=== PATIENT | female | born 1965 | race Caucasian/White ===

== ENCOUNTER 2022-05-24 10:37 | Outpatient (CLI) | payer MEDICARE, BC, SELFPAY | END 2022-05-24 10:38 | disposition home or self-care (01) | PROVIDERS: PCP Family Medicine; Visit Provider Family Medicine | DX: M51.36 Other intervertebral disc degeneration, lumbar region (principal); M54.16 Radiculopathy, lumbar region; M48.062 Spinal stenosis, lumbar region with neurogenic claudication | CPT/HCPCS: 64483; J1100; Q9966 ==

== ENCOUNTER 2022-12-17 08:42 | Outpatient (CLI) | payer MEDICARE, BC, SELFPAY | END 2022-12-17 08:43 | disposition home or self-care (01) | LOC: INJ CL 08:44 | PROVIDERS: PCP Family Medicine; Visit Provider Family Medicine | DX: M54.16 Radiculopathy, lumbar region (principal); M51.36 Other intervertebral disc degeneration, lumbar region | CPT/HCPCS: 64483; J1100; Q9966 ==

== ENCOUNTER 2024-01-27 14:01 | Outpatient (CLI) | payer MEDICARE, BC, SELFPAY | END 2024-01-27 14:02 | disposition home or self-care (01) | LOC: INJ CL 14:02 | PROVIDERS: PCP Family Medicine; Visit Provider Family Medicine | DX: M17.11 Unilateral primary osteoarthritis, right knee (principal); M25.561 Pain in right knee | CPT/HCPCS: 64454 ==

== ENCOUNTER 2024-02-10 11:55 | Outpatient (CLI) | payer MEDICARE, BC, SELFPAY | END 2024-02-10 11:56 | disposition home or self-care (01) | LOC: INJ CL 11:55 | PROVIDERS: PCP Family Medicine; Visit Provider Family Medicine | DX: M17.11 Unilateral primary osteoarthritis, right knee (principal); M25.561 Pain in right knee | CPT/HCPCS: 64624; J2250; J3010 ==

== ENCOUNTER 2025-04-29 09:50 | Outpatient (CLI) | payer MEDICARE, BC, SELFPAY | END 2025-04-29 09:51 | disposition home or self-care (01) | PROVIDERS: PCP Family Medicine; Visit Provider Family Medicine | DX: M54.16 Radiculopathy, lumbar region (principal); M51.369 Other intervertebral disc degeneration, lumbar region without mention of lumbar back pain or lower extremity pain | CPT/HCPCS: 62323; J0702; Q9966 ==

== ENCOUNTER 2025-04-29 11:06 | Emergency (ER) | payer MEDICARE, BC, SELFPAY ==
--- OUTSIDE RECORDS SUMMARY | 2024-12-22 10:34 | XMS_ITS | Continuity of Care Document ---
Author Organization [facility] Address [address] [place] [address] Phone Care Team Providers Care Drop Clipper Name Role Phone Diane ROCHE, Elizabeth Unavailable Unavail able Allergies, Adverse Reactions, Alerts Substance Reaction Status Criticality No Known Allergies Active No Inform ation Medications Medication Instructions Dosage Effective Dates (start - stop) Status Comments ibuprofen 800 mg tablet take 1 tablet by oral route 3 times every day with food 800 MG - Active Procedures Procedure Date No Show Visit Fee Est Pt Eval 25 Min Telehealth Est Pt Eval 25 Min Arthrodesis, posterior, lumbar Posterior instrumentation, non-segmental Posterior instrumentation, non-segmental Arthrodesis, posterior, lumbar 21 Change Control for Diagnosis(s) 021 Anesthesia, extensive spine/cord procedu res No Show Visit Fee Inject, Spine, Lumb/sacr, Epi/subarc w/ img Guid Inject, Spine, Lumb/sacr, Epi/subarc w/ img Guid Methylprednisolone Acetate-40 Change Control for [employer] New Pt Eval 45 Min PT Eval - Low Complexity Therapeutic Exercise Advance Directives Directive Yes / No Effective Date File Name Resuscitation Not Answered N/A N/A Life Support Not Answered N/A N/A Intubation Not Answered N/A N/A Antibiotics Not Answered N/A N/A IV Fluid Support Not Answered N/A N/A Tube Feed Not Answered N/A N/A Other Directive N/A N/A WARNING:The information contained in this section is historical and is provided for information only and does not constitute a legal document or any assurance that the information is still accurate. Please verify the information with the bartholomew of the legal document before using it for clinical purposes. Encounters Encounter Description Practice Location Reason(s) For Visit Diagnoses Date Provider Providers Copied on Encounter RAINER Diego, [address], [place], [place], [address], [place] tel:[phone] Marcelle Diego [facility] 7390 No Information 5 Diane Johnson. [address], [place], [address], [place]. tel:[phone] Referring Provider: Hunter Contreras MD, [address] [place], [address]. tel:[phone] [facility], [address], [place], [place], [address], [place] tel:[phone] [facility] No Information Jun- 1 Juan Treadwell. [address], [place], [address], [place]. tel:[phone] Referring Provider: Hunter Contreras MD, [address] [place], [address]. tel:[phone] Est Pt Eval 25 Min Telehealth [facility], [address], [place], [place], [address], [place] tel:[phone] [facility] back pain (chief complaint) Intervertebral disc disorders w radiculopathy, lumbar regionLow back painRadiculopathy, lumbar regionDisruption of wound, unspecified, initial encounter Sep- 1 Mae Parker. [address], [place], [address], [place]. tel:[phone] Referring Provider: Hunter Contreras MD, [address] [place], [address]. tel:[phone] Est Pt Eval 25 Min [facility], [facility], [address], [place], [place], [address], [place] tel:[phone] [facility] Back pain (chief complaint) Intervertebral disc disorders w radiculopathy, lumbar regionLow back painRadiculopathy, lumbar regionSpinal stenosis, site unspecifiedDisrupt ion of wound, unspecified, initial encounterBody mass index (BMI) 40.0-44.9, adult Sep- 1 Motyrese Elena. [address], [place], [address], [place]. tel:[phone] Referring Provider: Hunter Contreras MD, [address] [place], [address]. tel:[phone] [facility], [address], [place], [place], [address], [place] tel:[phone] [facility] No Information 1 Luis Manuel Kelley. [address], [place], [address], [place]. tel:[phone] Referring Provider: Warren Romano, [address], [place], [address]. tel:[phone] [facility], [address], [place], [address], [place] tel:[phone] [facility] back pain (chief complaint) Spondylolisthesis, lumbar regionIntervertebr al disc disorders w radiculopathy, lumbar regionOther intervertebral disc degeneration, lumbar region 1 [facility]. [address], [place], [place], [address], [place]. tel:[phone] Referring Provider: Warren Romano, [address], [place], [address]. tel:[phone] Johnathon, [facility], [address], [place], [place], [address], [place] tel:[phone] [facility] Surgical [facility] No Information 1 Peg Carroll. [address], [place], [address], [place]. tel:[phone] Referring Provider: Warren Romano, [address], [place], [address]. tel:[phone] [facility], [facility], [address], [place], [place], [address], [place] tel:[phone] [facility] Spinal stenosis, site unspecified 1 Martine Chamberlain. [address], [place], [place], [address], [place]. tel:[phone] [facility], [facility], [address], [place], [place], [address], [place] tel:[phone] [facility] No Information 1 Mae Parker. [address], [place], [address], [place]. tel:[phone] Referring Provider: Hunter Contreras MD, [address] [facility], [place], [address]. tel:[phone] Johnathon, [facility], [address], [place], [place], [address], [place] tel:[phone] [facility] No Information 1 Luis Manuel Kelley. [address], [place], [address], [place]. tel:[phone] Referring Provider: Warren Romano, [address], [place], [address]. tel:[phone] [facility], [address], [place], [address], [place] tel:[phone] [facility] back pain (chief complaint) Radiculopathy, lumbar regionRadiculopath y, lumbar region Adarsh- 1 [facility]. [address], [place], [place], [address], [place]. tel:[phone] Referring Provider: Warren Romano, [address], [place], [address]. tel:[phone] New Pt Eval 45 Min Johnathon, [facility], [address], [place], [place], [address], [place] tel:[phone] [facility] back pain (chief complaint) Low back painRadiculopathy, lumbar regionSpinal stenosis 1 Martine Florian. [address], [place], [place], [address], [place]. tel:[phone] Referring Provider: Hunter Contreras MD, [address] [place], [address]. tel:[phone] Johnathon, [facility], [address], [place], [place], [address], [place] tel:[phone] [facility] Radiculopathy, lumbar regionSpinal stenosis, site unspecified 1 Stefanie Skinner. [address], [facility] , [place], [address], [place]. tel:[phone] Referring Provider: Hunter Contreras MD, [address] [place], [address]. tel:[phone] Family History Family Member Type Diagnosis Age At Onset No Information Payers Payer name Insurance type Covered constitution party ID Authoriza tiyumiko(s) No Information Social History Type Description Quantity Date Captured Comments Alcohol Use Details Unknown Caffeine Use Details Unknown Tobacco Use Status No Information Smoking Status No Information Sex Female Chief Complaint And Reason For Visit No Information Reason For Referral Reason For Referral No Information Plan Of Treatment Date Type Action Status Goal Tobacco cessation counseling completed Goal Tobacco cessation counseling completed Referral Referred To: transforaminal LESI Ordered: transforaminal LESI on both sides L4-5 ordered Referral Ordered: Surgery (related to Disruption of wound, unspecified, initial encounter) ordered Referral Referred To: [address] [place] [address], [phone] Ordered: Referrals: Surgery. Evaluate and treat ordered Referral Ordered: Behavioral Health (related to Radiculopathy, lumbar region) ordered Referral Ordered: interspinous spacer ordered Referral Ordered: Referrals: Behavioral Health. Evaluate and treat ordered Referral Ordered: Behavioral Health (related to Spinal stenosis) ordered Referral Referred To: Physical Therapy Ordered: Physical Therapy ordered Referral Ordered: Referrals: Behavioral Health ordered Referral Referred To: transforaminal LESI Ordered: transforaminal LESI on the left L4-5 ordered History Of Present Illness Encounter Date Complaint History Of Prese nt Illness back pain Location of pain is lower back. Pain is radiated to the left thigh, right thigh and buttock.The patient describes the pain as shooting. Symptoms are aggravated by sitting and walking. Symptoms are relieved by lying down and pain meds/drugs. Back pain Location of pain is lower back. Pain is radiated to the left thigh and right thigh.The patient describes the pain as shooting. Symptoms are aggravated by sitting and standing. Symptoms are relieved by ice and pain meds/drugs. back pain Location of pain is lower back. back pain Location of pain is lower back.The patient describes the pain as burning. back pain Location of pain is lower back, gluteal area and legs.The patient describes the pain as deep, diffuse, stabbing, superficial and throbbing. Symptoms are aggravated by bending, changing positions, daily activities, pushing, rolling over in bed, sneezing, standing and twisting. Symptoms are relieved by injection: epidural injection, physical therapy, rest and sitting. Functional Status Date Functional Assessmen t No Information Instructions Date Instruction Additional Infor sherry - Continue Percocet 5mg up to 3x/day as needed, fill today- URGENT: Schedule transforaminal lumbar epidural steroid injection at L4-5- Order lumbar CT at [facility] - Follow up in one week IN CLINIC Related to Intervertebral disc disorders w radiculopathy, lumbar region Same plan of care as statement for above diagnosis, no changes Related to Low back pain Same plan of care as statement for above diagnosis, no changes Related to Radiculopathy, lumbar region Same plan of care as statement for above diagnosis, no changes Related to Disruption of wound, unspecified, initial encounter Same plan of care as statement for above diagnosis, no changes Related to Disruption of wound, unspecified, initial encounter - Prescribe Percocet 5mg up to 3x/day as needed for post op pain- Referral to Wound Clinic at [facility] in [place]. - Prescribed another 10 day course of cephalexin, take as prescribed - Follow up in 2-4 weeks Related to Intervertebral disc disorders w radiculopathy, lumbar region Same plan of care as statement for above diagnosis, no changes Related to Low back pain Same plan of care as statement for above diagnosis, no changes Related to Radiculopathy, lumbar region Same plan of care as statement for above diagnosis, no changes Related to Spinal stenosis, site unspecified Giving encouragement to exercise Related to Body mass index [BMI]40.0-44.9, adult Dietary needs education Related to Body mass index [BMI]40.0-44.9, adult -Schedule repeat Lum bar TFESI in 3-4 weeks digital coordinator to speak with patient before discharge.Follow up with [facility] Therapy Implant Evaluation.Follow up with [facility] Wellness Implant Evaluation.*Provide patient with MinuteMan information*Prior Auth MinuteMan at L4-5 for spinal stenosis Related to Radiculopathy, lumbar region Same plan of care as statement for above diagnosis, no changes Related to Spinal stenosis - records from [facility] (Dr. Pimentel)- records from [facility] (Dr. Sandhu) - Order MRI of the lumbar spine at [facility] - Order stationary neutral A/P and lateral views x rays at [facility].- Order lateral flexion vs extension x ray of the lumbar spine at [facility].- schedule left transforaminal lumbar epidural steroid injection at L4-[address] Issa to discuss possible spinal spacer procedure - refer to physical therapy - refer to behavioral health - no medications prescribed today - return in one month with advanced practice provider to disucss plan of care moving forward The risks and benefits of the procedure will be reviewed with the physician on the day of the procedure. Related to Low back pain Same plan of care as statement for above diagnosis, no changes Related to Radiculopathy, lumbar region Assessments Type Assessment Date No Information Patient Care Teams Name Effective Dates (start - stop) Status Members No Information
--- OUTSIDE RECORDS SUMMARY | 2024-12-22 10:34 | XMS_ITS | Continuity of Care Document ---
Author Organization Johnathon [facility] Address [address] [place] [address] Phone Care Team Providers Care Loader Helper Sorting Yard Name Role Phone Diane ROCHE, Elizabeth Unavailable [...] Providers Copied on Encounter RAINER Diego, [address], [place], [place], [address], [place] tel:[phone] Marcelle Diego [facility] 7390 No Information 5 Diane Johnson. [address], [place], [address], [place]. tel:[phone] Referring Provider: Hunter Contreras MD, [address] [place], [address]. tel:[phone] [facility], [address], [place], [place], [address], [place] tel:[phone] [facility] No Information Jun- 1 Juan Treadwell. [address], [place], [address], [place]. tel:[phone] Referring Provider: Hunter Contreras MD, [address] [place], [address]. tel:[phone] Est Pt Eval 25 Min Telehealth [facility], [address], [place], [place], [address], [place] tel:[phone] [facility] back pain (chief complaint) Intervertebral disc disorders w radiculopathy, lumbar regionLow back painRadiculopathy, lumbar regionDisruption of wound, unspecified, initial encounter Sep- 1 Mae Parker. [address], [place], [address], [place]. tel:[phone] Referring Provider: Hunter Contreras MD, [address] [place], [address]. tel:[phone] Est Pt Eval 25 Min [facility], [facility], [address], [place], [place], [address], [place] tel:[phone] [facility] Back pain (chief complaint) Intervertebral disc disorders w radiculopathy, lumbar regionLow back painRadiculopathy, lumbar regionSpinal stenosis, site unspecifiedDisrupt ion of wound, unspecified, initial encounterBody mass index (BMI) 40.0-44.9, adult Sep- 1 Motyrese Elena. [address], [place], [address], [place]. tel:[phone] Referring Provider: Hunter Contreras MD, [address] [place], [address]. tel:[phone] [facility], [address], [place], [place], [address], [place] tel:[phone] [facility] No Information 1 Luis Manuel Kelley. [address], [place], [address], [place]. tel:[phone] Referring Provider: Warren Romano, [address], [place], [address]. tel:[phone] [facility], [address], [place], [address], [place] tel:[phone] [facility] back pain (chief complaint) Spondylolisthesis, lumbar regionIntervertebr al disc disorders w radiculopathy, lumbar regionOther intervertebral disc degeneration, lumbar region 1 [facility]. [address], [place], [place], [address], [place]. tel:[phone] Referring Provider: Warren Romano, [address], [place], [address]. tel:[phone] Johnathon, [facility], [address], [place], [place], [address], [place] tel:[phone] [facility] No Information 1 Peg Carroll. [address], [place], [address], [place]. tel:[phone] Referring Provider: Warren Romano, [address], [place], [address]. tel:[phone] [facility], [facility], [address], [place], [place], [address], [place] tel:[phone] [facility] Spinal stenosis, site unspecified 1 Martine Chamberlain. [address], [place], [place], [address], [place]. tel:[phone] [facility], [facility], [address], [place], [place], [address], [place] tel:[phone] [facility] No Information 1 Mae Parker. [address], [place], [address], [place]. tel:[phone] Referring Provider: Hunter Contreras MD, [address] [facility], [place], [address]. tel:[phone] Johnathon, [facility], [address], [place], [place], [address], [place] tel:[phone] [facility] No Information 1 Luis Manuel Kelley. [address], [place], [address], [place]. tel:[phone] Referring Provider: Warren Romano, [address], [place], [address]. tel:[phone] [facility], [address], [place], [address], [place] tel:[phone] [facility] back pain (chief complaint) Radiculopathy, lumbar regionRadiculopath y, lumbar region Adarsh- 1 [facility]. [address], [place], [place], [address], [place]. tel:[phone] Referring Provider: Warren Romano, [address], [place], [address]. tel:[phone] New Pt Eval 45 Min Johnathon, [facility], [address], [place], [place], [address], [place] tel:[phone] [facility] back pain (chief complaint) Low back painRadiculopathy, lumbar regionSpinal stenosis 1 Martine Florian. [address], [place], [place], [address], [place]. tel:[phone] Referring Provider: Hunter Contreras MD, [address] [place], [address]. tel:[phone] Johnathon, [facility], [address], [place], [place], [address], [place] tel:[phone] [facility] Radiculopathy, lumbar regionSpinal stenosis, site unspecified 1 Stefanie Skinner. [address], [facility] , [place], [address], [place]. tel:[phone] Referring Provider: Hunter Contreras MD, [address] [place], [address]. tel:[phone] Family History Family Member Type Diagnosis Age At Onset No Information Payers Payer name Insurance type Covered alliance party ID Authoriza tiyumiko(s) No Information Social [...] unspecified, initial encounter) ordered Referral Referred To: [address] [place] [address], [phone] Ordered: Referrals: Surgery. Evaluate and treat ordered [...] No Information Instructions Date Instruction Additional Infor mation Same plan of care as statement for above diagnosis, no changes Related to Disruption of wound, unspecified, initial encounter Same plan of care as statement for above diagnosis, no changes Related to Radiculopathy, lumbar region Same plan of care as statement for above diagnosis, no changes Related to Low back pain - Continue Percocet 5mg up to 3x/day [...] changes Related to Spinal stenosis, site unspecified Same plan of care as statement for above diagnosis, no changes Related to Radiculopathy, lumbar region Sep- Same plan of care as statement for above diagnosis, no changes Related to Low back pain - Prescribe Percocet 5mg up to 3x/day as needed for post op pain- Referral to Wound Clinic at [facility] in [place]. - Prescribed another 10 day course of cephalexin, take as prescribed - Follow up in 2-4 weeks Related to Intervertebral disc disorders w radiculopathy, lumbar region Sep- Dietary needs education Related to Body mass index [BMI]40.0-44.9, adult Giving encouragement to exercise Related to Body mass index [BMI]40.0-44.9, adult -Schedule repeat Lum bar TFESI in 3-4 weeks acquisition marketing coordinator to speak with patient before discharge.Follow up with [facility] Physical Therapy Implant Evaluation.Follow up with [facility] Wellness Implant Evaluation.*Provide patient with MinuteMan information*Prior Auth MinuteMan at L4-5 for spinal stenosis Related to Radiculopathy, lumbar region Same plan of care as statement for above diagnosis, no changes Related to Spinal stenosis - records from [facility] (Dr. Pimentel)- records from [facility] (Dr. Sandhu) - Order MRI of the lumbar spine at [facility] - Order stationary neutral A/P and lateral views x rays at [facility].- Order lateral flexion vs extension x ray of the lumbar spine at [facility].- schedule left transforaminal lumbar epidural steroid injection [...]
--- OUTSIDE RECORDS SUMMARY | 2025-04-06 13:06 | XMS_ITS | Encounter Summary ---
Author Organization [facility] Address [address] [place] [address] Care Team Providers Care Homeowner Association Manager Name Role Phone Elsewhere, Pcp Primary Care Provider Unavailabl e Encounter Details Date Type Department Care Team (Latest Contact Info) Description 04/06/2025 1:06 PM CDT Hospital Encounter Department of Laboratory Medicine in [place], [place] [address] [place] [address] Sean Newton M.D. [address] [place] [address] Alcohol Moderate Or Severe Use Disorder (Dependence) Uncomplicated (HCC) Discharge Disposition: Home or Self Care Social History Tobacco Use Types Packs/Day Years Used Date Smoking Tobacco: Former Cigarettes Smokeless Tobacco: Never Alcohol Use Standard Drinks/Week Comments Not Currently 0 (1 standard drink = 0.6 oz pur e alcohol) [facility] Utilities Answer Date Recorded In the past 12 months has e [employer], gas, oil, or water [employer] threatened to shut off services in your home? No 11/24/2024 Hunger Vital Sign Answer Date Recorded Within the past 12 months, y ou worried that your food would run out before you got the money to buy more. Often true Within the past 12 months, t he food you bought just didn't last and you didn't have money to get more. Sometimes true PRAPARE - Transportation Answer Date Re corded In the past 12 months, has l ack of transportation kept you from medical appointments or from getting medications? No 11/06 In the past 12 months, has l ack of transportation kept you from meetings, work, or from getting things needed for daily living? No 11/24/2024 Housing Stability Answer Date Recorded What is your living situation today? I have a 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 4 albuterol 90 mcg/actuation inhaler Inhale 2 puffs every 4 (four) hours as needed for wheezing or shortness of breath. 6.7 g 4 HYDROmorphone (Dilaudid) 2 mg tabletIndications :Prolonged Acute Pain/Traumatic Injury Take 1 tablet (2 mg total) by mouth every 4 (four) hours as needed for pain for up to 10 doses Indication: Prolonged Acute Pain/Traumatic Injury. 10 tablet 4 ibuprofen 400 mg tablet Take 400 mg by mouth every 6 (six) hours as needed for pain. naltrexone microspheres (VIVITROL IM) Inject intramuscularly every 30 (thirty) days. rifAMPin (Rifadin) 300 mg capsule Take 300 mg by mouth 2 (two) times a day. sennosides (Senokot) 8.6 mg tablet Take 17.2 mg by mouth 2 (two) times a day as needed for constipation. 4 documented as of this encounter Plan of Treatment Not on file documented as of this encounter Procedures Procedure Name Priority Date/Time Associated Diagnosis Comments CSM ENHANCED PROFILE,21, HRMS/IA, U Routine 04/06/2025 1:09 PM CDT Alcohol Moderate Or Severe Use Disorder (Dependence) Uncomplicated (HCC) documented in this encounter Results * (ABNORMAL) CSM Enhanced Profile with Reflex, 21, hour MS/IA, Random, Urine (04/06/2025 1:09 PM T) List patient's current medications Not provided 9:01 PM T [facility] Comment: ----ADDITIONAL INFORMATION---- Accuracy and completeness of declared medications on reports solely dependent on information submitted by client. Creatinine, Random, U 141.0 mg/dL 5 8:26 AM T [facility] Specific [place] 1.021 04/07/20 2 5 8:26 AM CDT SDS pH 5.6 5 8:26 AM CDT [facility] Oxidants Negative Cutoff: 200 mg/L 8:26 AM CDT [facility] Comment Normal 8:26 AM CDT [facility] Barbiturates Negative Cutoff: 200 ng/mL 5 8:26 AM T [facility] Cocaine Negative Cutoff: 150 ng/mL 5 8:26 AM T [facility] Comment: This cocaine immunoassay targets benzoylecgonine the primary metabolite of cocaine. Tetrahydrocannabinol Negative Cutoff: 50 ng/mL 5 8:26 AM T [facility] Comment: This immunoassay targets delta-9 tetrahydrocannabinol carboxylic acid (THC-COOH), a metabolite of delta-9 tetrahydrocannabinol the main psychoactive ingredient of marijuana. ----ADDITIONAL INFORMATION---- This report is intended for use in clinical monitoring or management of patients. It is not intended for use in employment-related testing. Codeine Not Detected Cutoff: 25 ng/mL 5 10:11 AM CDT [facility] Comment:Tylenol 3 Mpzdtli-2-ozqp-glucuro nide Not Detected Cutoff: 100 ng/mL 5 10:11 AM CDT [facility] Comment:Metabolite of codein e Morphine Not Detected Cutoff: 25 ng/mL 5 10:11 AM CDT [facility] Comment: Rhiannon Retana, MS Contin; Also a minor metabolite (10%) of codeine and can be seen in low concentrations (<2,000 ng/mL) with poppy seed ingestion. Vfjweqix-4-ggwj-glucur onide Not Detected Cutoff: 100 ng/mL 5 10:11 AM T [facility] Comment:Metabolite of morphi ne 6-monoacetylmorphine Not Detected Cutoff: 25 ng/mL 10:11 AM T [facility] Comment:Metabolite of heroin Hydrocodone Not Detected Cutoff: 25 ng/mL 5 10:11 AM T [facility] Comment: Lortab, Zamora, Vicodin; Also a very minor metabolite of codeine and impurity (<1%) of oxycodone. Norhydrocodone Not Detected Cutoff: 25 ng/mL 5 10:11 AM T [facility] Comment:Metabolite of hydroc odone Dihydrocodeine Not Detected Cutoff: 25 ng/mL 10:11 AM T [facility] Comment:Metabolite of hydroc odone Hydromorphone Not Detected Cutoff: 25 ng/mL 10:11 AM T [facility] Comment: Dilaudid, Exalgo; Also a metabolite of hydrocodone and a minor (<5%) metabolite of morphine. Xvuaonlyqbrtf-3-hsqe-g lucuronide Not Detected Cutoff: 100 ng/mL 10:11 AM T [facility] Comment:Metabolite of hydrom orphone Oxycodone Not Detected Cutoff: 25 ng/mL 10:11 AM T [facility] Comment:Endocet, Percocet, O xycontin Noroxycodone Not Detected Cutoff: 25 ng/mL 10:11 AM T [facility] Comment:Metabolite of oxycod one Oxymorphone Not Detected Cutoff: 25 ng/mL 10:11 AM T [facility] Comment:Numorphan, Opana; Al so a metabolite of oxycodone. Uuadjucrele-5-iywj-glu curonide Not Detected Cutoff: 100 ng/mL 10:11 AM T [facility] Comment:Metabolite of oxymor phone and/or naloxone (nornaloxone) Noroxymorphone Present(A) Cutoff: 25 ng/mL 10:11 AM T [facility] Comment:Metabolite of oxymor phone and/or naloxone (nornaloxone) Fentanyl Not Detected Cutoff: 2 ng/mL 5 10:11 AM CDT [facility] Comment:Actiq, Duragesic, Fe ntora Norfentanyl Not Detected Cutoff: 2 ng/mL 5 10:11 AM CDT [facility] Comment:Metabolite of fentan yl Meperidine Not Detected Cutoff: 25 ng/mL 5 10:11 AM CDT [facility] Comment:Demerol Normeperidine Not Detected Cutoff: 25 ng/mL 5 10:11 AM CDT [facility] Comment:Metabolite of meperi dine Naloxone Not Detected Cutoff: 25 ng/mL 5 10:11 AM CDT [facility] Comment:Narcan Wwqlejxq-5-rogb-glucur onide Not Detected Cutoff: 100 ng/mL 5 10:11 AM CDT [facility] Comment:Metabolite of naloxo ne Methadone, U Not Detected Cutoff: 25 ng/mL 5 10:11 AM CDT [facility] Comment:Dolophine EDDP Not Detected Cutoff: 25 ng/mL 5 10:11 AM CDT [facility] Comment:Metabolite of methad one Propoxyphene Not Detected Cutoff: 25 ng/mL 5 10:11 AM CDT [facility] Comment:Darvon, Darvocet Norpropoxyphene Not Detected Cutoff: 25 ng/mL 5 10:11 AM CDT [facility] Comment:Metabolite of propox yphene Tramadol Not Detected Cutoff: 25 ng/mL 5 10:11 AM CDT [facility] Comment:Tradol, Ultram, Ultr acet O-desmethyltramadol Not Detected Cutoff: 25 ng/mL 5 10:11 AM CDT [facility] Comment:Metabolite of tramad ol Tapentadol Not Detected Cutoff: 25 ng/mL 5 10:11 AM CDT [facility] Comment:Nucynta N-desmethyltapentadol Not Detected Cutoff: 50 ng/mL 5 10:11 AM CDT [facility] Comment:Metabolite of tapent adol Tscjvglqth-opxi-ntbzil onide Not Detected Cutoff: 100 ng/mL 10:11 AM T [facility] Comment:Metabolite of tapent adol Buprenorphine Not Detected Cutoff: 5 ng/mL 10:11 AM T [facility] Comment:Buprenex, Suboxone Norbuprenorphine see below Cutoff: 5 ng/mL 10:11 AM T [facility] Comment: Unknown interfering substance present; unable to obtain results. Metabolite of buprenorphine Norbuprenorphine glucuronide Not Detected Cutoff: 20 ng/mL 10:11 AM T [facility] Comment:Metabolite of bupren orphine Opioid Interpretation Test detected the presence of noroxymorphone (metabolite of oxymorphone). Suspect use of oxymorphone within the past three days. Noroxymorphone can also be a metabolite of naloxone (nornaloxone). If present with naloxone and/or fentoras-6-guyg-g lucuronide, the results are consistent with use of naloxone (Narcan) within the past three days. The results can also be consistent with use of naltrexone (Vivitrol or Revia) within the past three days. 10:11 AM [facility] Comment: ----ADDITIONAL INFORMATION---- This test was developed and its performance characteristics determined by [facility] in a manner consistent with CLIA requirements. This test has not been cleared or approved by the U.S. Food and Drug Administration. Alprazolam Not Detected Cutoff: 10 ng/mL 10:22 AM [facility] Comment:Xanax Alpha-Hydroxyalprazola m Not Detected Cutoff: 10 ng/mL 10:22 AM T [facility] Comment:Metabolite of Alpraz olam Alpha-Hydroxyalprazola m Glucuronide Not Detected Cutoff: 50 ng/mL 10:22 AM T [facility] Comment:Metabolite of Alpraz olam Chlordiazepoxide Not Detected Cutoff: 10 ng/mL 10:22 AM T [facility] Comment:Librium Clobazam Not Detected Cutoff: 10 ng/mL 10:22 AM [facility] Comment:Frisium, Onfi N-Desmethylclobazam Not Detected Cutoff: 200 ng/mL 07/05/202 5 10:22 AM CDT [facility] Comment:Metabolite of Clobaz am Clonazepam Not Detected Cutoff: 10 ng/mL 5 10:22 AM CDT [facility] Comment:Klonopin, Rivotril 7-aminoclonazepam Not Detected Cutoff: 10 ng/mL 5 10:22 AM CDT [facility] Comment:Metabolite of Clonaz epam Diazepam Not Detected Cutoff: 10 ng/mL 5 10:22 AM CDT [facility] Comment:Valium Nordiazepam Not Detected Cutoff: 10 ng/mL 5 10:22 AM CDT [facility] Comment:Metabolite of Chlord iazepoxide, Diazepam, or Prazepam. Flunitrazepam Not Detected Cutoff: 10 ng/mL 5 10:22 AM T [facility] Comment:Rohypnol 7-aminoflunitrazepam Not Detected Cutoff: 10 ng/mL 5 10:22 AM T [facility] Comment:Metabolite of Flunit razepam Flurazepam Not Detected Cutoff: 10 ng/mL 5 10:22 AM T [facility] Comment:Dalmane 2-Hydroxy Ethyl Flurazepam Not Detected Cutoff: 10 ng/mL 5 10:22 AM T [facility] Comment:Metabolite of Fluraz epam Lorazepam Not Detected Cutoff: 10 ng/mL 5 10:22 AM T [facility] Comment:Ativan Lorazepam Glucuronide Not Detected Cutoff: 50 ng/mL 5 10:22 AM T [facility] Comment:Metabolite of Loraze kvng Midazolam Not Detected Cutoff: 10 ng/mL 5 10:22 AM T [facility] Comment:Versed Alpha-Hydroxy Midazolam Not Detected Cutoff: 10 ng/mL 5 10:22 AM T [facility] Comment:Metabolite of Midazo christian Oxazepam Not Detected Cutoff: 10 ng/mL 5 10:22 AM T [facility] Comment:Serax; Also a metabo lite of Chlordiazepoxide, Diazepam, or Temazepam. Oxazepam Glucuronide Not Detected Cutoff: 50 ng/mL 5 10:22 AM CDT [facility] Comment:Metabolite of Oxazep am Prazepam Not Detected Cutoff: 10 ng/mL 5 10:22 AM CDT [facility] Comment:Centrax Temazepam Not Detected Cutoff: 10 ng/mL 5 10:22 AM T [facility] Comment:Restoril; Also a met abolite of Diazepam. Temazepam Glucuronide Not Detected Cutoff: 50 ng/mL 10:22 AM CDT [facility] Comment:Metabolite of Temaze kvng Triazolam Not Detected Cutoff: 10 ng/mL 5 10:22 AM CDT [facility] Comment:Halcion Alpha-Hydroxy Triazolam Not Detected Cutoff: 10 ng/mL 5 10:22 AM CDT [facility] Comment:Metabolite of Triazo christian Zolpidem Not Detected Cutoff: 10 ng/mL 5 10:22 AM CDT [facility] Comment:Ambien Zolpidem Ozqdxj-4-Pfdmkumldn acid Not Detected Cutoff: 10 ng/mL 10:22 AM CDT [facility] Comment:Metabolite of Zolpid em Benzodiazepine Interpretation No benzodiazepines were detected. The absence of expected drug(s) and/or drug metabolite(s) may indicate non-compliance, altered pharmacokinetics, inappropriate timing of specimen collection relative to drug administration, diluted/adulterat ed urine, or limitations of testing. 10:22 AM T [facility] Comment: ----ADDITIONAL INFORMATION---- This test was developed and its performance characteristics determined by [facility] in a manner consistent with CLIA requirements. This test has not been cleared or approved by the U.S. Food and Drug Administration. Methamphetamine Not Detected Cutoff: 100 ng/mL 11:34 AM CDT [facility] Comment:Desoxyn Amphetamine Not Detected Cutoff: 100 ng/mL 11:34 AM T [facility] Comment: Dyanavel XR, Adzenys ER, Adderall, Vyvanse; Also a metabolite of methamphetamine 3,4-methylenedioxymeth amphetamine (MDMA) Not Detected Cutoff: 100 ng/mL 5 11:34 AM CDT [facility] 3,6-knepgbvfvvngeu-H-e thylamphetamine (MDEA) Not Detected Cutoff: 100 ng/mL 5 11:34 AM CDT [facility] 3,4-methylenedioxyamph etamine (MDA) Not Detected Cutoff: 100 ng/mL 5 11:34 AM CDT [facility] Comment:Also a metabolite of MDMA and/or MDEA Ephedrine Not Detected Cutoff: 100 ng/mL 5 11:34 AM CDT [facility] Pseudoephedrine Not Detected Cutoff: 100 ng/mL 5 11:34 AM CDT [facility] Comment:Sudafed Phentermine Not Detected Cutoff: 100 ng/mL 5 11:34 AM CDT [facility] Comment:Adipex-P, Lomaira, Q symia Phencyclidine (PCP) Not Detected Cutoff: 20 ng/mL 11:34 AM CDT [facility] Methylphenidate Not Detected Cutoff: 20 ng/mL 5 11:34 AM CDT [facility] Comment:Ritalin, Concerta Ritalinic acid Not Detected Cutoff: 100 ng/mL 11:34 AM CDT [facility] Comment:Metabolite of methyl phenidate Stimulant Interpretation No stimulants were detected. The absence of expected drug(s) and/or drug metabolite(s) may indicate non-compliance, altered pharmacokinetics, inappropriate timing of specimen collection relative to drug administration, diluted/adulterat ed urine, or limitations of testing. 11:34 AM CDT [facility] Comment: ----ADDITIONAL INFORMATION---- This test was developed and its performance characteristics determined by [facility] in a manner consistent with CLIA requirements. This test has not been cleared or approved by the U.S. Food and Drug Administration. Ethyl Glucuronide Scrn w/Reflex, U Negative Cutoff: 500 ng/mL 8:26 AM CDT [facility] Comment: ----ADDITIONAL INFORMATION---- This test was developed and its performance characteristics determined by [facility] in a manner consistent with CLIA requirements. This test has not been cleared or approved by the U.S. Food and Drug Administration. Urine (Urine, Midstream) 04/06/2025 1:09 PM CDT 04/06/2025 9:01 PM CDT us Sean Newton M.D. LAB URINE ORDERABLES Fin al Result [facility] [address] [place] [address] [facility] [address] [place] [address] [facility] [address] [place] [address] [place] [address] documented in this encounter Visit Diagnoses Diagnosis Alcohol Moderate Or Severe Use Disorder (Dependence) Uncomplicated (HCC) documented in this encounter Additional Health Concerns Assessment Noted Time PHQ-9 Depression Total Score: 10 06/17/ 019 8:00 PM CDT documented as of this encounter Care Teams Homeowner Association Manager Relationship Specialty Start Date End Date Elsewhere, Pcp PCP - General Internal Medicine 01/20/25 documented as of this encounter
--- OUTSIDE RECORDS SUMMARY | 2025-04-06 13:07 | XMS_ITS | Encounter Summary ---
Author Organization [facility] Address [address] [place] [address] Care Team Providers Care Packing House Laborer Name Role Phone Elsewhere, Pcp Primary Care Provider Unavailabl e Encounter Details Date Type Department Care Team (Latest Contact Info) Description 04/06/2025 1:07 PM CDT - 04/06/2025 11:59 PM CDT Hospital Encounter Department of Laboratory Medicine in [place], [place] [address] [place] [address] Sean Newton M.D. [address] [place] [address] Alcohol Moderate Or Severe Use Disorder (Dependence) Uncomplicated (HCC) Discharge Disposition: Home or Self Care Social History Tobacco Use Types Packs/Day Years Used Date Smoking Tobacco: Former Cigarettes Smokeless Tobacco: Never Alcohol Use Standard Drinks/Week Comments Not Currently 0 (1 standard drink = 0.6 oz pur e alcohol) [facility] Utilities Answer Date Recorded In the past 12 months has e electric, gas, oil, or water [employer] threatened to shut off services in your [...] living situation today? 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 Gender Identity Female 03/12/2022 1:24 PM CDT [...] as of this encounter Plan of Treatment Scheduled Orders Name Type Priority Associated Diagnoses Orde r Schedule CSM Enhanced Profile with Reflex, 21, hour MS/IA, Random, Urine Lab Routine Alcohol Moderate Or Severe Use Disorder (Dependence) Uncomplicated (HCC) Once for 1 Occurrences starting 04/06/2025 until 04/06/2025 documented as of this encounter Visit Diagnoses Diagnosis Alcohol Moderate Or Severe Use Disorder (Dependence) Uncomplicated (HCC) documented in this encounter Additional Health Concerns Assessment Noted Time PHQ-9 Depression Total Score: 10 06/17/ 019 8:00 PM CDT documented as of this encounter Care Teams Packing House Laborer Relationship Specialty Start Date End Date Elsewhere, Pcp PCP - General Internal Medicine 01/20/25 documented as of this encounter
--- OUTSIDE RECORDS SUMMARY | 2025-04-29 11:10 | XMS_ITS | Clinical Summary ---
Author Organization [facility] Address [address] [place] [address] Care Team Providers Care Wire Mill Rover Name Role Phone José Miguel Mckenzie MD Primary Care Provider [phone] Source Comments You are receiving this document as you are listed as the primary care provider,follow-up provider, or the patient has been referred to you for consultation.This is in compliance with the Medicare and[facility] Health[facility] EHR Incentive Program,which states Providers who transition their patient to another setting of careor provider of care or refers their patient to another provider of care shouldprovide summary care record for each transition of care or referral. [facility] Allergies No known active allergies Medications BuPROPion HCl (WELLBUTRIN OR) Acti ve SERTRALINE HCL OR Ac tive IBUPROFEN OR Active Social History Tobacco Use Types Packs/Day Years Used Date Smoking Tobacco: Every Day Cigarettes Alcohol Use Standard Drinks/Week Comments Yes 0 (1 standard drink = 0.6 oz pur e alcohol) Comments Unknown Sex and Gender Information Value Date Recorded Sex Assigned at Not on file Legal Sex Female 3:58 AM CDT Gender Identity Not on file Sexual Orientation Not on file Last Filed Vital Signs Vital Sign Reading Time Taken Comments Blood Pressure 150/75 04/13/2020 9:55 AM CDT Pulse 81 04/13/2020 9:55 AM CDT Temperature 36.7 C (98 F) 04/13/2020 9:55 AM CDT Respiratory Rate 18 04/13/2020 9:55 AM CDT Oxygen Saturation 94% 04/13/2020 9:55 AM CDT Inhaled Oxygen Concentration - - Weight - - Height - - Body Mass Index - - Plan of Treatment Health Maintenance Due Date Last Done Comments Cervical Cancer Screening Due 1963 Colon Cancer Screening Plan Due 1963 Hep C Screening (Preventive Services) 1965 Medicare Annual Wellness Visit 1963 Mammogram 1963 HIV Screening (Preventive Services) 1979 DTaP/Tdap/Td Vaccine (1 - Tdap) 1982 Cholesterol 2008 Pneumococcal Vaccine 50+ Yrs (1 of 1 - PCV) 2013 Zoster/Shingles Vaccine (1 of 2) 2013 COVID-19 Vaccine (1 - 2023-2 5 season) 2024 Influenza Vaccine (#1) 2025 RSV Vaccine (1 - 1-dose 75+ series) 2038 HepA Vaccine Aged Out No longer eligi ble based on patient's age to complete this topic HepB Vaccine Aged Out No longer eligi ble based on patient's age to complete this topic Hib Vaccine Aged Out No longer eligi ble based on patient's age to complete this topic IPV (Polio) Vaccine Aged Out No longe r eligible based on patient's age to complete this topic MCV4 Vaccine Aged Out No longer eligi ble based on patient's age to complete this topic Meningococcal B Vaccine Aged Out No l onger eligible based on patient's age to complete this topic Insurance MEDICARE MANAGED CARE [facility] Care Teams Wire Mill Rover Relationship Specialty Start Date End Date José Miguel Mckenzie MD [address] [place] [address] PCP - General 07/24/1996
--- OUTSIDE RECORDS SUMMARY | 2025-04-29 11:10 | XMS_ITS | Encounter Summary ---
Author Organization [facility] Address [address] [place] [address] Care Team Providers Care Right Of Way Man Name Role Phone José Miguel Mckenzie MD Primary Care Provider [phone] Encounter Details Date Type Department Care Team (Latest Contact Info) Description 07/18/1998 Orders Only José Miguel Mckenzie MD [address] [place] [address] Social History Tobacco Use Types Packs/Day Years Used Date Smoking Tobacco: Never Assessed Comments Unknown Sex and Gender Information Value Date Recorded Sex Assigned at Not on file Legal Sex Female 3:58 AM CDT Gender Identity Not on file Sexual Orientation Not on file documented as of this encounter Plan of Treatment Not on file documented as of this encounter Visit Diagnoses Not on filedocumented in this encounter Additional Health Concerns Infection Onset Date Last Indicated Resolved Time R/O COVID19 04/13/2020 04/13/2020 04/13/2020 8:56 PM CDT documented as of this encounter Care Teams Right Of Way Man Relationship Specialty Start Date End Date José Miguel Mckenzie MD [address] [place] [address] PCP - General 07/24/1996 documented as of this encounter
--- OUTSIDE RECORDS SUMMARY | 2025-04-29 11:10 | XMS_ITS | Encounter Summary ---
Author Organization [facility] Address [address] [place] [address] Care Team Providers Care Assistant Press Operator Name Role Phone José Miguel Mckenzie MD Primary Care Provider [phone] Encounter Details Date Type Department Care Team (Latest Contact Info) Description 06/27/1998 Orders Only José Miguel Mckenzie MD [address] [place] [address] Social History Tobacco Use Types Packs/Day Years [...] documented as of this encounter Care Teams Assistant Press Operator Relationship Specialty Start Date End Date José Miguel Mckenzie MD [address] [place] [address] PCP - General 07/24/1996 documented as of this encounter
--- OUTSIDE RECORDS SUMMARY | 2025-04-29 11:11 | XMS_ITS | Clinical Summary ---
Author Organization [facility] Address [address] [place] [address] Care Team Providers Care Director Advanced Name Role Phone Elsewhere, Pcp Primary Care Provider Unavailabl e Source Comments Patient records contain information from all sites at [facility]. For routine questions regarding patient records, call [phone] during business hours, M-F 8:00 AM - 5:00 PM Central Time. Record requests for emergency care only can be directed to [phone] at any time.[facility] Allergies Active Allergy Reactions Criticality Noted Date Comments Pollen Extracts Other (see comments) 08/27/2024 Congestion Medications * This document contains information received from the source organization and may not represent a complete record from that organization. sennosides (Senokot) 8.6 mg tablet Take 17.2 mg by mouth 2 (two) times a day as needed for constipation. 07/29/20 24 Active acetaminophen (TylenoL) 325 mg tablet Take 2 tablets (650 mg total) by mouth 3 (three) times a day. 08/13/20 24 Active ibuprofen 400 mg tablet Take 400 mg by mouth every 6 (six) hours as needed for pain. Active rifAMPin (Rifadin) 300 mg capsule Take 300 mg by mouth 2 (two) times a day. Active amLODIPine (Norvasc) 5 mg tablet Take 1 tablet (5 mg total) by mouth daily. 30 tablet 08/30/20 24 Active Additional Information Patient taking differently: 10 mgoral Daily, Reported on 11/04/2024 lisinopriL 40 mg tablet Take 1 tablet (40 mg total) by mouth daily. 30 tablet 08/30/20 Active FLUoxetine (PROzac) 20 mg capsule Take 3 capsules (60 mg total) by mouth daily. 90 capsule 08/30/20 Active melatonin 3 mg tablet Take 2 tablets (6 mg total) by mouth at bedtime. 60 tablet 08/30/20 Active omeprazole (PriLOSEC) [address] capsule Take 1 capsule (20 mg total) by mouth 2 (two) times a day before morning and evening meals. 60 capsule 08/30/20 Active methocarbamoL (Robaxin) 500 mg tablet Take 1 tablet (500 mg total) by mouth 3 (three) times a day as needed for muscle spasms for up to 10 days. 30 tablet 08/30/20 Active albuterol 90 mcg/actuation inhaler Inhale 2 puffs every 4 (four) hours as needed for wheezing or shortness of breath. 6.7 g 08/30/20 Active HYDROmorphone (Dilaudid) 2 mg tabletIndication s:Prolonged Acute Pain/Traumatic Injury Take 1 tablet (2 mg total) by mouth every 4 (four) hours as needed for pain for up to 10 doses Indication: Prolonged Acute Pain/Traumatic Injury. 10 tablet 08/30/20 Active Additional Information Patient not taking.Reported on 11/04/[address] tablet Take 1 tablet (325 mg total) by mouth 2 (two) times a day. 60 tablet 08/30/20 Active naltrexone microspheres (VIVITROL IM) Inject intramuscularly every 30 (thirty) days. Active pregabalin (Lyrica) 150 mg capsule Take 1 capsule (150 mg total) by mouth 3 (three) times a day. 90 capsule 01/07/20 Active Active Problems Problem Noted Date Diagnosed Date Insomnia 08/01/2024 Overview (08/01/2024): Currently on trazodone but we will be discontinued. Melatonin 6 mg p.o. at bedtime started. Assessment & Plan (08/30/2024 4:07 PM [employer]): She is sleeping well with the melatonin. Assessment & Plan (08/01/2024 8:43 AM CDT): Nursing/patient is requesting we discontinue as needed trazodone and start melatonin since her trazodone is as needed. Trazodone 100 mg p.o. bedtime discontinued and melatonin 6 mg p.o. at bedtime started. Halfway Stay Certification Exam 07/30/2024 Overview (07/30/2024): Short-term stay Assessment & Plan (07/30/2024 11:05 AM CDT): Patient remains appropriate SNF resident. Order summary paperwork signed following our visit, this included review of medications and orders. Current comorbidities, ADL need/level of debility requires skilled care/therapy. Medications and labs all reviewed and appropriate related to comorbidities, unless otherwise indicated. Physician order sheet signed. Continue PT/OT therapy, nutrition intervention, skin protection, and fall prevention. Polypharmacy 07/30/2024 Overview (07/30/2024): All medications reviewed at least bimonthly for adverse events, interactions, and continued indication/appropriateness. Reduction as able. Advanced Care Planning 07/30/2024 Overview (07/30/2024): Full code Assessment & Plan (07/30/2024 11:07 AM CDT): Patient will like to continue full code status while at the shelter. Infection And Inflammatory R eaction Due To Other Internal Joint Prosthesis Initial 07/20/2024 Overview (08/30/2024): Right total knee arthroplasty 06/01/2024 Irrigation and debridement of arthroplasty 07/20/[address] [facility] for duration of IV antibiotic therapy clarified through 08/30. Assessment & Plan (08/30/2024 4:12 PM [employer]OR): She is discharging tomorrow and is on oral antibiotics. PICC line will be pulled tomorrow. 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 She will follow up with ID at [facility]. She will have an occasional dilaudid for pain. Assessment & Plan (08/13/2024 3:50 PM [employer]OR): IV cefazolin to continue through 08/30/2024. Stop date of p.o. rifampin still unclear and will be clarified by nursing. Following with Infectious Disease. Pain is controlled with hydromorphone and acetaminophen. Orders to follow-up with orthopedics in 2 weeks at which time sutures can be removed. Assessment & Plan (08/01/2024 8:44 AM CDT): Patient/nursing has no concerns the right knee management. Pain is well controlled with current regimen per patient. She is currently on cephalexin IV till 08/30/2024. Infectious disease following. Presence Of Right Artificial Knee Joint 06/02/20 24 Overview (08/30/2024): Knee is still slightly red and warm to touch. Assessment & Plan (08/30/2024 4:09 PM [employer]): Continue rifampin and follow up with ID at [facility] as planned. Gastro-Esophageal Reflux Dis ease With Esophagitis Without Bleeding 08/05/2023 Overview (08/01/2024): Managed with omeprazole. Assessment & Plan (08/30/2024 4:05 PM [employer]): Follow up with PCP for monitoring serum magnesium levels. Asymptomatic. Assessment & Plan (08/01/2024 8:31 AM CDT): Asymptomatic. Continue care plan. Deficiency Vitamin D 07/30/2018 Overview (07/30/2024): Jul 2018: still low at 24. Hypertension Essential Primary 05/19/2017 Overview (08/01/2024): Treatment: Lisinopril and amlodipine Goal: 110-130. Assessment & Plan (08/30/2024 3:47 PM [employer]): Normotensive on current regimen. Assessment & Plan (08/01/2024 8:33 AM CDT): Blood pressure normotensive. Continue care plan. Chronic Obstructive Pulmonary Disease 07/26/2015 Overview (08/01/2024): Manage with albuterol sulfate Assessment & Plan (08/30/2024 3:49 PM [employer]): Lungs clear Assessment & Plan (08/01/2024 8:29 AM CDT): Stable. Continue pulmonary hygiene. Depression Major Recurrent Moderate 11/07/2014 Overview (08/01/2024): Managed with fluoxetine. Assessment & Plan (08/30/2024 4:04 PM [employer]): Continue medication Assessment & Plan (08/01/2024 8:30 AM CDT): Patient was in high spirit and denied depression. We will continue care plan. Alcohol Moderate Or Severe U se Disorder (Dependence) Uncomplicated 11/07/2014 Overview (08/01/2024): Multiple history of alcohol intoxication. She has had therapy in the past. Goes to AA. Assessment & Plan (08/30/2024 3:49 PM [employer]ST [employer]OR): She has abstained from ETOH Assessment & Plan (08/01/2024 8:28 AM CDT): Denied alcohol withdrawal symptoms and verbalized no urge/craving for alcohol. We will continue to monitor. Morbid Severe Obesity Due To Excess Calories Overview (07/30/2024): Body mass index is 45.14 kg/m . Assessment & Plan (08/30/2024 4:07 PM [employer]ST [employer]OR): This is clinically significant due to increased nursing cares, use of resources and specialty equipment. Chronic Pain Syndrome Overview (08/13/2024): Chronic low back pain. Encounters * This document contains information received from the source organization and may not represent a complete record from that organization. Date Type Department Care Team Description 04/06/2025 1:07 PM CDT - 04/06/2025 11:59 PM CDT Hospital Encounter Department of Laboratory Medicine in [address] [phone] Sean Newton M.D. Alcohol Moderate Or Severe Use Disorder (Dependence) Uncomplicated (HCC) Discharge Disposition: Home or Self Care 04/06/2025 1:06 PM CDT Hospital Encounter Department of Laboratory Medicine in [address] [id number] Sean Newton M.D. Alcohol Moderate Or Severe Use Disorder (Dependence) Uncomplicated (HCC) Discharge Disposition: Home or Self Care 03/09/2025 1:02 PM CDT - 03/09/2025 11:59 PM CDT Hospital Encounter Department of Laboratory Medicine in [address] [phone] Sean Newton M.D. Alcohol Moderate Or Severe Use Disorder (Dependence) Uncomplicated (HCC) Discharge Disposition: Home or Self Care 02/15/2025 12:50 PM CDT - 02/15/2025 11:59 PM CDT Hospital Encounter Department of Laboratory Medicine in [address] [phone] Sean Newton M.D. Alcohol Moderate Or Severe Use Disorder (Dependence) Uncomplicated (HCC) Discharge Disposition: Home or Self Care from Last 3 Months Immunizations Immunization Administration Dates Next Due HepB Adult 03/15/2015,09/27/2014,07/06/2014 Influenza, Injectable, Mdck, Preservative Free, Quadrivalent 08/11/2019 Influenza, Unspecified 07/23/2013 PCV20 06/24/2022 PPSV23 12/30/2018,07/07/2013 RZV (SHINGRIX) 11/06/2021 Td Preservative Free (TENIVA C, DECAVAC) 11/14/2017 Tdap 10/29/2007 influenza trivalent vaccine (6 months and older)(PF) 08/26/2005 influenza vaccine quad (FLUZONE/FLUARIX) (6 months and older)(PF) 08/12/2024,06/17/2023,06/24/2022,2021,07/04/2020,07/06/2018,07/21/2017,0 06/13/2016,06/06/2015,09/27/2014 Social History Tobacco Use Types Packs/Day Years Used Date Smoking Tobacco: Former Cigarettes Smokeless Tobacco: Never Tobacco Cessation:Ready to Q uit: Not Asked; Counseling Given: Not Answered Alcohol Use Standard Drinks/Week Comments Not Currently 0 (1 standard drink = 0.6 oz pur e alcohol) [facility] Utilities Answer Date Recorded In the past 12 months has th e electric, gas, oil, or water company threatened to shut off services in your [...] your living situation today? I have a [facility] place to live 11/24/2024 Comments No Sex and Gender Information Value Date Recorded Sex Assigned at Female 03/12/2022 1:24 PM CDT Legal Sex Female 8:33 PM [employer] Gender Identity Female 03/12/2022 1:24 PM CDT Sexual Orientation Straight 07/30/2022 9: 10 AM CDT Last Filed Vital Signs Vital Sign Reading Time Taken Comments Blood Pressure 129/88 08/30/2024 8:35 AM [employer] Pulse 77 08/30/2024 8:35 AM [employer] Temperature 36.7 C (98 F) 08/30/2024 8:35 AM [employer] Respiratory Rate 18 08/30/2024 8:35 AM [employer] Oxygen Saturation 93% 08/30/2024 8:35 AM [employer] Inhaled Oxygen Concentration - - Weight 116 kg (254 lb 12.8 oz) 08/30/2024 8:35 A M [employer] Height 162.6 cm (5' 4) 07/29/2024 5:47 PM CDT Body Mass Index 43.74 07/29/2024 5:47 PM CDT Plan of Treatment Health Maintenance Due Date Last Done Comments CT Colonography 1963 Cologuard 1965 Depression Monitoring (PHQ-9) 1965 FIT 1965 Hepatitis C Screening 1965 Lipid (Cholesterol) Screening 1965 Zoster Vaccines (2 of 2) 01/01/2022 11/06/2021 RSV vaccine - (32-36 weeks) or 60+ years (1 - Risk 60-74 years 1-dose series) 2023 COVID-19 Vaccine ( season) 2024 10/08/2023, 04/25/2022, 11/06/2021, Additional history exists Depression Monitoring (PHQ-9 for quality tracking) 10/06/2024 Influenza Vaccine (#1) 2025 , 06/17/2023, 06/24/2022, Additional history exists Office Visit for Blood Pressure Check / Re-check 08/30/2025 08/30/2024 Mammogram 10/29/2025 10/29/2024, 10/07, 05/15/2023, Additional history exists DTaP,Tdap,and Td Vaccines (3 - Td or Tdap) 11/14/2027 11/14/2017, 10/29/2007 Cervical/Vaginal Cancer Screening 11/18/2027 11/18/2024, 06/04/2018 Fasting Glucose for Diabetes Screening 11/25/2027 11/25/2024, 09/07/2024, 08/30/2024, Additional history exists Colonoscopy 09/03/2033 09/03/2023 Colorectal Cancer Screening 09/03/2033 Hepatitis B Vaccines Completed 03/15/2015, 09/27/2014, 07/06/2014 Hepatitis B Screening Discontinued 05/27/2019 Pneumococcal vaccine (50+ years) Completed 06/24/2022, 12/30/2018, 07/07/2013 IPV Vaccines Aged Out No longer eligi ble based on patient's age to complete this topic Procedures Procedure Name Priority Date/Time Associated Diagnosis Comments CSM ENHANCED PROFILE,21, HRMS/IA, U Routine 04/06/2025 1:09 PM CDT Alcohol Moderate Or Severe Use Disorder (Dependence) Uncomplicated (HCC) CSM ENHANCED PROFILE,21, HRMS/IA, U Routine 03/09/2025 8:58 PM CDT Alcohol Moderate Or Severe Use Disorder (Dependence) Uncomplicated (HCC) CSM ENHANCED PROFILE,21, HRMS/IA, U Routine 02/15/2025 12:52 PM CDT Alcohol Moderate Or Severe Use Disorder (Dependence) Uncomplicated (HCC) from Last 3 Months Results * (ABNORMAL) CSM Enhanced Profile with Reflex, 21, hour MS/IA, Random, Urine (04/06/2025 1:09 PM CDT) Only the most recent of3 resultswithin the time period is included. List patient's current medications Not provided 9:01 PM CDT [facility] Comment: ----ADDITIONAL INFORMATION---- Accuracy and completeness of declared medications on reports solely dependent on information submitted by client. Creatinine, Random, U 141.0 mg/dL 5 8:26 AM CDT [facility] Specific Bruno 1.021 04/07/20 2 5 8:26 AM CDT [facility] pH 5.6 5 8:26 AM CDT [facility] Oxidants Negative Cutoff: 200 mg/L 5 8:26 AM CDT [facility] Comment Normal 5 8:26 AM CDT [facility] Barbiturates Negative Cutoff: 200 ng/mL 5 8:26 AM CDT [facility] Cocaine Negative Cutoff: 150 ng/mL 5 8:26 AM CDT [facility] Comment: This cocaine immunoassay targets benzoylecgonine the primary metabolite of cocaine. Tetrahydrocannabinol Negative Cutoff: 50 ng/mL 8:26 AM T [facility] Comment: This immunoassay targets delta-9 tetrahydrocannabinol carboxylic acid (THC-COOH), a metabolite of delta-9 tetrahydrocannabinol the main psychoactive ingredient of marijuana. ----ADDITIONAL INFORMATION---- This report is intended for use in clinical monitoring or management of patients. It is not intended for use in employment-related testing. Codeine Not Detected Cutoff: 25 ng/mL 5 10:11 AM CDT [facility] Comment:Tylenol 3 Aemetxs-9-hmvy-glucuro nide Not Detected Cutoff: 100 ng/mL 5 10:11 AM [facility] Comment:Metabolite of codein e Morphine Not Detected Cutoff: 25 ng/mL 10:11 AM T [facility] Comment: Rhiannon Retana, MS Contin; Also a minor metabolite (10%) of codeine and can be seen in low concentrations (<2,000 ng/mL) with poppy seed ingestion. Isabanqz-6-hvgm-glucur onide Not Detected Cutoff: 100 ng/mL 10:11 AM T [facility] Comment:Metabolite of morphi ne 6-monoacetylmorphine Not Detected Cutoff: 25 ng/mL 5 10:11 AM T [facility] Comment:Metabolite of heroin Hydrocodone Not Detected Cutoff: 25 ng/mL 10:11 AM [facility] Comment: Lortab, [place], Vicodin; Also a very minor metabolite of codeine and impurity (<1%) of oxycodone. Norhydrocodone Not Detected Cutoff: 25 ng/mL 5 10:11 AM T [facility] Comment:Metabolite of hydroc odone Dihydrocodeine Not Detected Cutoff: 25 ng/mL 10:11 AM T [facility] Comment:Metabolite of hydroc odone Hydromorphone Not Detected Cutoff: 25 ng/mL 5 10:11 AM T [facility] Comment: Dilaudid, Exalgo; Also a metabolite of hydrocodone and a minor (<5%) metabolite of morphine. Mxxjpaspolwew-9-znue-g lucuronide Not Detected Cutoff: 100 ng/mL 5 10:11 AM CDT [facility] Comment:Metabolite of hydrom orphone Oxycodone Not Detected Cutoff: 25 ng/mL 5 10:11 AM CDT [facility] Comment:Endocet, Percocet, O xycontin Noroxycodone Not Detected Cutoff: 25 ng/mL 5 10:11 AM CDT [facility] Comment:Metabolite of oxycod one Oxymorphone Not Detected Cutoff: 25 ng/mL 5 10:11 AM CDT [facility] Comment:Numorphan, Opana; Al so a metabolite of oxycodone. Vvlglxjaqit-1-dbot-glu curonide Not Detected Cutoff: 100 ng/mL 10:11 AM CDT [facility] Comment:Metabolite of oxymor phone and/or naloxone (nornaloxone) Noroxymorphone Present(A) Cutoff: 25 ng/mL 5 10:11 AM CDT [facility] Comment:Metabolite of oxymor phone and/or naloxone (nornaloxone) Fentanyl Not Detected Cutoff: 2 ng/mL 10:11 AM T [facility] Comment:Actiq, Duragesic, Fe ntora Norfentanyl Not Detected Cutoff: 2 ng/mL 5 10:11 AM CDT [facility] Comment:Metabolite of fentan yl Meperidine Not Detected Cutoff: 25 ng/mL 5 10:11 AM CDT [facility] Comment:Demerol Normeperidine Not Detected Cutoff: 25 ng/mL 10:11 AM CDT [facility] Comment:Metabolite of meperi dine Naloxone Not Detected Cutoff: 25 ng/mL 5 10:11 AM T [facility] Comment:Narcan Uoofuffl-8-wbie-glucur onide Not Detected Cutoff: 100 ng/mL 5 10:11 AM CDT [facility] Comment:Metabolite of naloxo ne Methadone, U Not Detected Cutoff: 25 ng/mL 5 10:11 AM T [facility] Comment:Dolophine EDDP Not Detected Cutoff: 25 ng/mL 5 10:11 AM CDT [facility] Comment:Metabolite of methad one Propoxyphene Not Detected Cutoff: 25 ng/mL 5 10:11 AM CDT [facility] Comment:Darvon, Darvocet Norpropoxyphene Not Detected Cutoff: 25 ng/mL 5 10:11 AM T [facility] Comment:Metabolite of propox yphene Tramadol Not Detected Cutoff: 25 ng/mL 5 10:11 AM CDT [facility] Comment:Tradol, Ultram, Ultr acet O-desmethyltramadol Not Detected Cutoff: 25 ng/mL 5 10:11 AM CDT [facility] Comment:Metabolite of tramad ol Tapentadol Not Detected Cutoff: 25 ng/mL 5 10:11 AM CDT [facility] Comment:Nucynta N-desmethyltapentadol Not Detected Cutoff: 50 ng/mL 10:11 AM T [facility] Comment:Metabolite of tapent adol Hfzntlaihm-mcly-qmuebv onide Not Detected Cutoff: 100 ng/mL 5 10:11 AM CDT [facility] Comment:Metabolite of tapent adol Buprenorphine Not Detected Cutoff: 5 ng/mL 5 10:11 AM CDT [facility] Comment:Buprenex, Suboxone Norbuprenorphine see below Cutoff: 5 ng/mL 10:11 AM T [facility] Comment: Unknown interfering substance present; unable to obtain results. Metabolite of buprenorphine Norbuprenorphine glucuronide Not Detected Cutoff: 20 ng/mL 5 10:11 AM CDT [facility] Comment:Metabolite of bupren orphine Opioid Interpretation Test detected the presence of noroxymorphone (metabolite of oxymorphone). Suspect use of oxymorphone within the past three days. Noroxymorphone can also be a metabolite of naloxone (nornaloxone). If present with naloxone and/or xazlqyuq-3-uaux-g lucuronide, the results are consistent with use of naloxone (Narcan) within the past three days. The results can also be consistent with use of naltrexone (Vivitrol or Revia) within the past three days. 5 10:11 AM CDT [facility] Comment: ----ADDITIONAL INFORMATION---- This test was developed and its performance characteristics determined by [facility] in a manner consistent with CLIA requirements. This test has not been cleared or approved by the U.S. Food and Drug Administration. Alprazolam Not Detected Cutoff: 10 ng/mL 5 10:22 AM CDT [facility] Comment:Xanax Alpha-Hydroxyalprazola m Not Detected Cutoff: 10 ng/mL 5 10:22 AM CDT [facility] Comment:Metabolite of Alpraz olam Alpha-Hydroxyalprazola m Glucuronide Not Detected Cutoff: 50 ng/mL 5 10:22 AM CDT [facility] Comment:Metabolite of Alpraz olam Chlordiazepoxide Not Detected Cutoff: 10 ng/mL 5 10:22 AM CDT [facility] Comment:Librium Clobazam Not Detected Cutoff: 10 ng/mL 5 10:22 AM CDT [facility] Comment:Frisium, Onfi N-Desmethylclobazam Not Detected Cutoff: 200 ng/mL 5 10:22 AM CDT [facility] Comment:Metabolite of Clobaz am Clonazepam Not Detected Cutoff: 10 ng/mL 5 10:22 AM CDT [facility] Comment:Klonopin, Rivotril 7-aminoclonazepam Not Detected Cutoff: 10 ng/mL 5 10:22 AM CDT [facility] Comment:Metabolite of Clonaz epam Diazepam Not Detected Cutoff: 10 ng/mL 5 10:22 AM CDT [facility] Comment:Valium Nordiazepam Not Detected Cutoff: 10 ng/mL 5 10:22 AM CDT [facility] Comment:Metabolite of Chlord iazepoxide, Diazepam, or Prazepam. Flunitrazepam Not Detected Cutoff: 10 ng/mL 5 10:22 AM CDT [facility] Comment:Rohypnol 7-aminoflunitrazepam Not Detected Cutoff: 10 ng/mL 5 10:22 AM CDT [facility] Comment:Metabolite of Flunit razepam Flurazepam Not Detected Cutoff: 10 ng/mL 5 10:22 AM CDT [facility] Comment:Dalmane 2-Hydroxy Ethyl Flurazepam Not Detected Cutoff: 10 ng/mL 5 10:22 AM CDT [facility] Comment:Metabolite of Fluraz epam Lorazepam Not Detected Cutoff: 10 ng/mL 5 10:22 AM CDT [facility] Comment:Ativan Lorazepam Glucuronide Not Detected Cutoff: 50 ng/mL 5 10:22 AM CDT [facility] Comment:Metabolite of Loraze kvng Midazolam Not Detected Cutoff: 10 ng/mL 5 10:22 AM CDT [facility] Comment:Versed Alpha-Hydroxy Midazolam Not Detected Cutoff: 10 ng/mL 5 10:22 AM CDT [facility] Comment:Metabolite of Midazo christian Oxazepam Not Detected Cutoff: 10 ng/mL 5 10:22 AM T [facility] Comment:Serax; Also a metabo lite of Chlordiazepoxide, Diazepam, or Temazepam. Oxazepam Glucuronide Not Detected Cutoff: 50 ng/mL 5 10:22 AM CDT [facility] Comment:Metabolite of Oxazep am Prazepam Not Detected Cutoff: 10 ng/mL 5 10:22 AM CDT [facility] Comment:Centrax Temazepam Not Detected Cutoff: 10 ng/mL 5 10:22 AM CDT [facility] Comment:Restoril; Also a met abolite of Diazepam. Temazepam Glucuronide Not Detected Cutoff: 50 ng/mL 5 10:22 AM T [facility] Comment:Metabolite of Temaze kvng Triazolam Not Detected Cutoff: 10 ng/mL 5 10:22 AM CDT [facility] Comment:Halcion Alpha-Hydroxy Triazolam Not Detected Cutoff: 10 ng/mL 5 10:22 AM CDT [facility] Comment:Metabolite of Triazo christian Zolpidem Not Detected Cutoff: 10 ng/mL 5 10:22 AM CDT [facility] Comment:Ambien Zolpidem Autqef-8-Jeocwptfbd acid Not Detected Cutoff: 10 ng/mL 5 10:22 AM CDT [facility] Comment:Metabolite of Zolpid em Benzodiazepine Interpretation No benzodiazepines were detected. The absence of expected drug(s) and/or drug metabolite(s) may indicate non-compliance, altered pharmacokinetics, inappropriate timing of specimen collection relative to drug administration, diluted/adulterat ed urine, or limitations of testing. 10:22 AM CDT [facility] Comment: ----ADDITIONAL INFORMATION---- This test was developed and its performance characteristics determined by [facility] in a manner consistent with CLIA requirements. This test has not been cleared or approved by the U.S. Food and Drug Administration. Methamphetamine Not Detected Cutoff: 100 ng/mL 11:34 AM CDT [facility] Comment:Desoxyn Amphetamine Not Detected Cutoff: 100 ng/mL 11:34 AM CDT [facility] Comment: Dyanavel XR, Adzenys ER, Adderall, Vyvanse; Also a metabolite of methamphetamine 3,4-methylenedioxymeth amphetamine (MDMA) Not Detected Cutoff: 100 ng/mL 11:34 AM CDT [facility] 3,3-sratbujvqawptg-C-e thylamphetamine (MDEA) Not Detected Cutoff: 100 ng/mL 11:34 AM CDT [facility] 3,4-methylenedioxyamph etamine (MDA) Not Detected Cutoff: 100 ng/mL 11:34 AM CDT [facility] Comment:Also a metabolite of MDMA and/or MDEA Ephedrine Not Detected Cutoff: 100 ng/mL 11:34 AM CDT [facility] Pseudoephedrine Not Detected Cutoff: 100 ng/mL 11:34 AM CDT [facility] Comment:Sudafed Phentermine Not Detected Cutoff: 100 ng/mL 5 11:34 AM CDT [facility] Comment:Adipex-P, Lomaira, Q symia Phencyclidine (PCP) Not Detected Cutoff: 20 ng/mL 5 11:34 AM CDT [facility] Methylphenidate Not Detected Cutoff: 20 ng/mL 5 11:34 AM CDT [facility] Comment:Ritalin, Concerta Ritalinic acid Not Detected Cutoff: 100 ng/mL 5 11:34 AM CDT [facility] Comment:Metabolite of methyl phenidate Stimulant Interpretation No stimulants were detected. The absence of expected drug(s) and/or drug metabolite(s) may indicate non-compliance, altered pharmacokinetics, inappropriate timing of specimen collection relative to drug administration, diluted/adulterat ed urine, or limitations of testing. 5 11:34 AM T [facility] Comment: ----ADDITIONAL INFORMATION---- This test was developed and its performance characteristics determined by [facility] in a manner consistent with CLIA requirements. This test has not been cleared or approved by the U.S. Food and Drug Administration. Ethyl Glucuronide Scrn w/Reflex, U Negative Cutoff: 500 ng/mL 5 8:26 AM [facility] Comment: ----ADDITIONAL INFORMATION---- This test was developed and its performance characteristics determined by [facility] in a manner consistent with CLIA requirements. This test has not been cleared or approved by the U.S. Food and Drug Administration. Urine (Urine, Midstream) 04/06/2025 1:09 PM CDT 04/06/2025 9:01 PM CDT Sean Newton M.D. LAB URINE ORDERABLES [facility] al Result [facility] [address] [place] [address] [facility] [address] [place] [address] [facility] [address] [place] [address] [place] [address] from Last 3 Months Insurance [facility] MEDICARE [place] MEDICA[place] Advance Directives For more information, please contact: [phone] * Full Code (Latest Code Status on File) Date Activated Date Inactivated Comments 08/01/2024 8:59 AM Question Answer Comments Full Code: Discussed Care Teams Director Advanced Relationship Specialty Start Date End Date Elsewhere, Pcp PCP - General Internal Medicine 01/20/25
--- OUTSIDE RECORDS SUMMARY | 2025-04-29 11:11 | XMS_ITS | Encounter Summary ---
Author Organization [facility] Address [address] [place] [address] Care Team Providers Care Pipe Supervisor Name Role Phone José Miguel Mckenzie MD Primary Care Provider [phone] Encounter Details Date Type Department Care Team (Latest Contact Info) Description 10/24/1998 Orders Only José Miguel Mckenzie MD [address] [place] [address] Social History Tobacco Use Types Packs/Day Years [...] documented as of this encounter Care Teams Pipe Supervisor Relationship Specialty Start Date End Date José Miguel Mckenzie MD [address] [place] [address] PCP - General 07/24/1996 documented as of this encounter
--- OUTSIDE RECORDS SUMMARY | 2025-04-29 11:11 | XMS_ITS | Encounter Summary ---
Author Organization [facility] Address [address] [place] [address] Care Team Providers Care Assistant Buyer Name Role Phone José Miguel Mckenzie MD Primary Care Provider [phone] Encounter Details Date Type Department Care Team (Latest Contact Info) Description 11/24/1998 Orders Only José Miguel Mckenzie MD [address] [place] [address] Social History Tobacco Use Types Packs/Day Years [...] as of this encounter Care Teams Assistant Buyer Relationship Specialty Start Date End Date José Miguel Mckenzie MD [address] [place] [address] PCP - General 07/24/1996 documented as of this encounter
--- OUTSIDE RECORDS SUMMARY | 2025-04-29 11:11 | XMS_ITS | Encounter Summary ---
Author Organization [facility] Address [address] [place] [address] Care Team Providers Care Endless Belt Finisher Name Role Phone JoséM iguel Mckenzie MD Primary Care Provider [phone] Encounter Details Date Type Department Care Team (Latest Contact Info) Description 01/19/1999 Orders Only José Miguel Mckenzie MD [address] [place] [address] Social History Tobacco Use Types Packs/Day Years [...] documented as of this encounter Care Teams Endless Belt Finisher Relationship Specialty Start Date End Date José Miguel Mckenzie MD [address] [place] [address] PCP - General 07/24/1996 documented as of this encounter
--- OUTSIDE RECORDS SUMMARY | 2025-04-29 11:11 | XMS_ITS | Encounter Summary ---
Author Organization [facility] Address [address] [place] [address] Care Team Providers Care Hand Candy Cutter Name Role Phone José Miguel Mckenzie MD Primary Care Provider [phone] Encounter Details Date Type Department Care Team (Latest Contact Info) Description 11/27/1998 Orders Only José Miguel Mckenzie MD [address] [place] [address] Social History Tobacco Use Types Packs/Day Years [...] documented as of this encounter Care Teams Hand Candy Cutter Relationship Specialty Start Date End Date José Miguel Mckenzie MD [address] [place] [address] PCP - General 07/24/1996 documented as of this encounter
--- OUTSIDE RECORDS SUMMARY | 2025-04-29 11:11 | XMS_ITS | Encounter Summary ---
Author Organization [facility] Address [address] [place] [address] Care Team Providers Care Warehouse Delivery Driver Name Role Phone José Miguel Mckenzie MD Primary Care Provider [phone] Encounter Details Date Type Department Care Team (Latest Contact Info) Description 08/07/1998 Orders Only Denise Chavarria Social History Tobacco Use Types Packs/Day Years [...] documented as of this encounter Care Teams Warehouse Delivery Driver Relationship Specialty Start Date End Date José Miguel Mckenzie MD [address] [place] [address] PCP - General 07/24/1996 documented as of this encounter
--- OUTSIDE RECORDS SUMMARY | 2025-04-29 11:11 | XMS_ITS | Encounter Summary ---
Author Organization [facility] Address [address] [place] [address] Care Team Providers Care Industrial Equipment Wirer Name Role Phone José Miguel Mckenize MD Primary Care Provider [phone] Encounter Details Date Type Department Care Team (Latest Contact Info) Description 03/30/2000 Orders Only [employer], [place] [address] Social History Tobacco Use Types Packs/Day Years [...] documented as of this encounter Care Teams Industrial Equipment Wirer Relationship Specialty Start Date End Date José Miguel Mckenzie MD [address] [place] [address] PCP - General 07/24/1996 documented as of this encounter
--- OUTSIDE RECORDS SUMMARY | 2025-04-29 11:11 | XMS_ITS | Encounter Summary ---
Author Organization [facility] Address [address] [place] [address] Care Team Providers Care Financial Services Officer Name Role Phone José Miguel Mckenzie MD Primary Care Provider [phone] Encounter Details Date Type Department Care Team (Latest Contact Info) Description 09/26/1998 Orders Only José Miguel Mckenzie MD [address] [place] [address] Social History Tobacco Use Types Packs/Day Years [...] documented as of this encounter Care Teams Financial Services Officer Relationship Specialty Start Date End Date José Miguel Mckenzie MD [address] [place] [address] PCP - General 07/24/1996 documented as of this encounter
--- OUTSIDE RECORDS SUMMARY | 2025-04-29 11:11 | XMS_ITS | Encounter Summary ---
Author Organization [facility] Address [address] [place] [address] Care Team Providers Care State Epidemiologist Name Role Phone José Miguel Mckenzie MD Primary Care Provider [phone] Encounter Details Date Type Department Care Team (Latest Contact Info) Description 03/11/2000 Orders Only José Miguel Mckenzie MD [address] [place] [address] Social History Tobacco Use Types Packs/Day Years [...] documented as of this encounter Care Teams State Epidemiologist Relationship Specialty Start Date End Date José Miguel Mckenzie MD [address] [place] [address] PCP - General 07/24/1996 documented as of this encounter
--- OUTSIDE RECORDS SUMMARY | 2025-04-29 11:11 | XMS_ITS | Encounter Summary ---
Author Organization [facility] Address [address] [place] [address] Care Team Providers Care Drill Press Tender Name Role Phone José Miguel Mckenzie MD Primary Care Provider [phone] Encounter Details Date Type Department Care Team (Latest Contact Info) Description 02/18/2000 Orders Only José Miguel Mckenzie MD [address] [place] [address] Social History Tobacco Use Types Packs/Day Years [...] documented as of this encounter Care Teams Drill Press Tender Relationship Specialty Start Date End Date José Miguel Mckenzie MD [address] [place] [address] PCP - General 07/24/1996 documented as of this encounter
--- OUTSIDE RECORDS SUMMARY | 2025-04-29 11:11 | XMS_ITS | Clinical Summary ---
Author Organization [employer] [facility] Address [address] [place] [id number] Care Team Providers Care Torch Brazer Name Role Phone Arley Doan MD Unavailable Sandee Kc DO Primary Care Provider Rohini Craft COMPLIANCE EXAMINER Unavailable [phone] Sourav Singleton MD Unavailable Apoorva Kelly RN Unavailable [phone] Unavailable [phone] Betina Pineda HYDROGEN OPERATOR Unavailable [phone] Linda Hilliard MD Unavailable Denisse Servin Unavailable Allergies Active Allergy Reactions Criticality Noted Date Comments Unlisted Allergen (Include Detail In Comments) Other - Describe In Comment Field 01/20/2017 Pt states she has seasonal allergies-itchy watery eyes Medications * This document contains information received from the source organization and may not represent a complete record from that organization. albuterol HFA (PRO-AIR; VENTOLIN; PROVENTIL) 90 mcg/actuation inhalerIndicati ons:Chronic obstructive pulmonary disease, unspecified COPD type (HC) Inhale 2 Puffs by mouth every 4 hours if needed for Shortness of Breath 1st choice or Wheezing 1st choice. 2 Each 3 023 Active acetaminophen (TYLENOL EXTRA STRGTH) 500 mg tabletIndicatio ns:Status post knee surgery Take 2 Tablets (1,000 mg) by mouth every 6 hours. Max acetaminophen dose: 4000mg in 24 hrs. 100 Tablet 024 Active nystatin 100,000 unit/gram creamIndication s:Yeast dermatitis Apply to groin and under breasts 2-3 times daily until resolved and then 1-3 times a week for prevention 120 g 1 025 Active methocarbamoL 500 mg tabletIndicatio ns:Postoperativ e pain of right knee,Status post total right knee replacement TAKE ONE TABLET BY MOUTH THREE TIMES A DAY IF NEEDED FOR MUSCLE SPASM 90 Tablet 3 025 Active amLODIPine (NORVASC) 5 mg tabletIndicatio ns:HTN (hypertension) Take 1 Tablet (5 mg) by mouth once daily. 90 Tablet 2 025 Active omeprazole (PRILOSEC) 20 mg Delayed-Release capsuleIndicati ons:Laryngophar yngeal reflux (LPR) Take 1 Capsule (20 mg) by mouth two times daily before meals. Morning and Evening 180 Capsule 3 025 Active melatonin 10 mg chew Chew 20 mg by mouth. Active calcium carbonate/vitam in D2 (VDASPRT-275-C ORAL) Take by mouth. Activ e magnesium 250 mg tab Take 250 mg by mouth once daily. Active turmeric root extract 500 mg cap Take 2 Capsules by mouth. Active pregabalin 150 mg capsuleIndicati ons:Fibromyalgi a Take 1 Capsule (150 mg) by mouth three times daily. 270 Capsule 1 025 Active ibuprofen 800 mg tabletIndicatio ns:Other chronic pain TAKE ONE TABLET BY MOUTH EVERY DAY NEEDED. Minimize use 90 Tablet 1 025 Active FLUoxetine (PROZAC) 40 mg capsuleIndicati ons:Mild recurrent major depression Take 2 Capsules (80 mg) by mouth once daily in the morning. 180 Capsule 1 025 Active Wegovy 0.25 mg/0.5 mL subcutaneous penIndications: Heart failure, unspecified HF chronicity, unspecified heart failure type (HC),Class 3 severe obesity with serious comorbidity and body mass index (BMI) of 45.0 to 49.9 in adult, unspecified obesity type (HC) Inject 0.25 mg subcutaneous once weekly. 2 mL 025 Active topiramate 25 mg tabletIndicatio ns:Class 3 severe obesity with serious comorbidity and body mass index (BMI) of 45.0 to 49.9 in adult, unspecified obesity type (HC),Insulin resistance Take 2 tablets (50mg) by mouth at bedtime daily. Please contact prescribing provider for directions on how to safely discontinue this medication. 60 Tablet 2 Active lisinopriL (PRINIVIL; ZESTRIL) 40 mg tabletIndicatio ns:Hypertension , unspecified type TAKE ONE TABLET BY MOUTH EVERY DAY 90 Tablet 1 025 Active lisinopriL 40 mg tabletIndicatio ns:Hypertension , unspecified type Take 1 Tablet (40 mg) by mouth once daily. 90 Tablet 025 2024 Discontinued topiramate 25 mg tabletIndicatio ns:Class 3 severe obesity with serious comorbidity and body mass index (BMI) of 45.0 to 49.9 in adult, unspecified obesity type (HC),Insulin resistance Take 1 tablet (25mg) by mouth at bedtime daily for 14 days if tolerating; okay to increase to 2 tablets (50mg) by mouth at bedtime daily. Please contact prescribing provider for directions on how to safely discontinue this medication. 60 Tablet 1 025 2024 Discontinued(R eorder (E-cancel not sent)) FLUoxetine 40 mg capsuleIndicati ons:Mild recurrent major depression Take 2 Capsules (80 mg) by mouth once daily in the morning. 025 2024 Discontinued(R eorder (E-cancel not sent)) topiramate 25 mg tabletIndicatio ns:Class 3 severe obesity with serious comorbidity and body mass index (BMI) of 45.0 to 49.9 in adult, unspecified obesity type (HC),Insulin resistance Take 1 tablet (25mg) by mouth at bedtime daily for 14 days if tolerating; okay to increase to 2 tablets (50mg) by mouth at bedtime daily. Please contact prescribing provider for directions on how to safely discontinue this medication. 60 Tablet 2 025 2024 Discontinued(* Medication adjustment) Hospital, Clinic, or Other Facility Administered Medication Ordered Dose Route Frequency Start Date End Date Status naltrexone ER (4 weeks) (VIVITROL) 380 mg/4 mL intramuscular injection 380 mgIndications:Severe alcohol dependence in early remission (HC) 380 mg IM Q 4 WEEKS (28 DAYS) 04/11/2025 08/01/2025 Active Active Problems Patient Care Coordination No te Formatting of this note is d ifferent from the original. Weight Management - Adult Surgical Program Patient Received Binder: Yes Part of KTYA Program: no RDC or GS Patient: No Initial Consult / Established Care 08/05/[address] Sourav Kelly RN [facility] Candidate: no Intake: Wt Readings from Last 1 Encounters: 08/05/23 107.5 kg (237 lb) lbs, Ht Readings from Last 1 Encounters: 08/05/23 1.6 m (5' 2.99) BMI: 41.99 Planned Operation Nasreen-en-Y Gastric Bypass Payor: EMcube MR / Plan: [employer] [place] [employer] PB ONLY / Product Type: *No Product type* / Insurance requirements: follow medicare and auth appCREAR Est. Pgm Completion: ~ January, Procedure Location: [facility] Co-morbidities: GERD and hypertension Orders: Labs Yes Imaging / Procedures GB out Pre-Surgery Program Consults: - Registered Dietitian 3 - Psychological Evaluation: yes Referrals:yes - PT: -Tobacco Cessation: reports that she quit smoking about 8 months ago. Her smoking use included cigarettes. She started smoking about 46 years ago. She has a 43.9 pack-year smoking history. She has been exposed to tobacco smoke. She has never used smokeless tobacco. Future Appointments Date Time Provider Department Center 08/07/2023 3:00 PM Rohini Craft NP [facility] 08/12/2023 9:45 AM Betina Pineda HYDROGEN OPERATOR [facility] 08/15/2023 1:[address] [facility] 08/19/2023 9:45 AM Betina Pineda [facility] 08/26/2023 9:45 AM Betina Pineda HYDROGEN OPERATOR [facility] 09/02/2023 9:45 AM Betina Pineda, HYDROGEN OPERATOR [facility] Problem Noted Date Diagnosed Date Heart failure, unspecified H F chronicity, unspecified heart failure type 04/18/2025 BV (bacterial vaginosis) 09/08/2024 E. coli UTI 09/08/2024 Yeast vaginitis 09/08/2024 ETOH abuse 09/07/2024 Septic shock due to Escherichia coli 09/07/2024 Encephalopathy acute 09/07/2024 S/p Right knee irrigation & debridement with poly exchange DOS: 07/20/2024 with Dhaval Del Angel MD 07/23/2024 Infection of total knee replacement 07/20/2024 Acute alcoholic intoxication without complicatio n 07/05/2024 S/p Right total knee arthrop lasty DOS: 06/01/2024 with Dhaval Del Angel MD 06/02/2024 Primary osteoarthritis of right knee 12/08/2023 Gastroesophageal reflux dise ase with esophagitis without hemorrhage 08/05/2023 Alcohol withdrawal 02/11/2023 Hypoxia 02/11/2023 Prolonged QT interval 02/11/2023 History of MRSA infection 12/29/2019 Overview (12/29/2019): Skin abscess 12/2019 Adenomatous colon polyp 11/03/2018 Overview (11/03/2018): Colonoscopy 10/2018 large polyp, repeat in 3 years Chronic bilateral low back pain without sciatica 09/27/2018 Overview (05/27/2022): ~ September 2018: L5-S1 IL epidural steroid injection by Dr. Sandhu. ~ March 2019: L5-S1 IL epidural steroid injection by Dr. Sandhu. ~ August 2020: L5-S1 epidural steroid injection by Dr. Sandhu. ~ January 2021: L5-S1 Interlaminar epidural steroid injection by Dr. Sandhu. March 2021: [facility] L5-S1 IL epidural steroid injection injection. May 2021: minute Man procedure. September 2021: Left L5-S1 TF epidural steroid injection by Dr. Sandhu. ~ December 2021: L5-S1 TF epidural steroid injection by Dr. Sandhu. ~ May 2022: L5-S1 TF epidural steroid injection by Dr. Sandhu. Vitamin D deficiency 07/30/2018 Overview (07/30/2018): Jul 2018: still low at 24. Alcohol dependence in remission 07/21/2018 Chronic pain associated with significant psychosocial dysfunction 07/21/2018 Primary osteoarthritis involving multiple joints 06/04/2018 Overview (06/04/2018): Per rheumatology 11/2017: 'She was treated for possible seronegative rheumatoid arthritis without relief with Enbrel. No erosive changes noted on Xrays. Symptoms are now not suggestive of an inflammatory arthritis. Was advised to discontinue the Enbrel. Ortho referral placed for the hand pain. Will continue the Plaquenil as this has sometimes been beneficial for OA. Eye exam has seen stable. Pain clinic referral placed for chronic lower back and Hip pain.' HTN (hypertension) 05/19/2017 Complicated grief 01/20/2017 Shortness of breath 11/15/2016 Fibromyalgia 09/05/2015 COPD (chronic obstructive pulmonary disease) Pulmonary nodules 05/09/2015 Overview (06/24/2018): Two 3mm nodules on CT done for cough 05/2015. Needs repeat CT in 12 months Sub 4mm nodules on CT done in ER 11/2016: needs repeat 12 months Pulmonary nodules stable 06/2018 and no further evaluation needed per radiology Major depressive disorder, recurrent episode, mo derate 11/07/2014 Posttraumatic stress disorder 11/07/2014 Alcohol use disorder, severe, dependence 015 Overview (05/19/2017): 05/19/2017: last relapse 2 weeks ago, prior to that 9 months sober. Goes to AA. Hepatitis C, s/p treatment 06/16/2014 Overview (05/19/2017): In remission/cured s/p treatment Knee pain, bilateral 06/09/2014 Morbid obesity with BMI of 45.0-49.9, adult 04/06 Overview (06/01/2024): Body mass index is 45.14 kg/m . Tobacco use disorder 04/24/2012 H/O LEEP 10/06/2007 Overview (12/02/2024): 2007 LEEP, no results in chart. 02/14/2015 NIL 06/04/2018 NIL/HPV negative 06/20/2021 NIL/HPV negative 11/18/2024 NIL/HPV negative Plan: HPV-based testing due 11/2027 ASCCP suggests that follow-up should continue at 3 year intervals for a minimum of 25 years AND through at least age 65 years AND may continue for as long as the patient is in good health. Resolved Problems Problem Noted Date Diagnosed Date Resolved Date GABRIELLE (acute kidney injury) 02/11/2023 Cough 12/30/2018 06/01/2024 Assessment & Plan (12/30/2018 1:40 PM CDT): - tessalon perls take as needed - flonase Sore throat 12/30/2018 06/01/2024 Assessment & Plan (12/30/2018 1:40 PM CDT): Rapid strep Need for vaccination for Strep pneumoniae 12/30/2018 06/01/2024 Assessment & Plan (12/30/2018 1:43 PM CDT): Pneumonia shot Alcohol abuse, in remission 04/22/2015 05/19/2017 Alcohol abuse 11/07/2014 11/07/2014 Alcohol abuse 11/07/2014 11/07/2014 Chronic hepatitis C virus infection 06/24/2014 09/23/2022 Sicca 06/09/2014 01/09/2023 Abnormal liver function tests 04/25/2012 05/19/2017 Cellulitis and abscess of leg, except foot 04/24/2012 06/01/2024 Overview (04/24/2012): bilateral Pain in joint, lower leg 04/24/2012 Elevated BP 04/24/2012 04/25/2012 Rheumatoid arthritis(714.0) 06/04/2018 Overview (06/04/2018): Previously treated for seronegative Encounters Date Type Department Care Team Description 04/28/2025 Travel 04/21/2025 1:00 PM CDT Telemedicine [facility] [address] [place] [address] Betina Pineda, [facility] Individual Therapy; Telehealth 04/21/2025 11:00 AM CDT Telemedicine [facility] [address] [place] [address] Rohini Craft, AGN[facility]KA Telehealth; Medication Management 04/21/2025 Refill [facility] [address] [place] [address] Sandee Kc, Refill Request (Lisinopril) 04/20/2025 Travel 04/18/2025 3:00 PM CDT Telemedicine [facility] [address] [place] [address] Denisse Servin PA Telehealth (No vitals taken); Weight (MWL follow up) 04/15/2025 10:40 AM CDT Nurse/Clinic Staff Only [facility] [address] [place] [address] Immunization/Injection (Vivitrol) 04/15/2025 Travel 04/11/2025 10:56 AM CDT - 04/11/2025 11:59 PM CDT Hospital Encounter [facility] [address] [place] [address] Loco Sandhu MD Spinal stenosis of lumbar region with neurogenic claudication; Lumbar facet arthropathy; Lumbar radiculopathy 04/11/2025 Telephone [facility] [address] [place] [address] Loco Sandhu MD Results (MRI) 04/11/2025 Travel 03/28/2025 1:20 PM CDT Office Visit [facility] [address] [place] [address] Loco Sandhu MD Musculoskeletal Problem (Follow up back and left hip/leg pain) 03/28/2025 Travel 03/24/2025 1:00 PM CDT Telemedicine [facility] [address] [place] [address] Betina Pineda, [facility] Individual Therapy; Telehealth 03/23/2025 Travel 03/18/2025 Refill [facility] [address] [place] [address] Sandee Kc DO Refill Request (Ibuprofen) 03/14/2025 9:30 AM CDT Telemedicine [facility] [address] [place] [address] Rohini Craft NP Telehealth; Medication Management 03/14/2025 Travel 03/14/2025 Telephone [facility] [address] [place] [address] Rohini Craft NP Refill Request 03/11/2025 10:40 AM CDT Nurse/Clinic Staff Only [facility] [address] [place] [address] Immunization/Injection (Vivitrol 380 mg given in R ventrogluteal) 03/11/2025 Travel 03/10/2025 1:00 PM CDT Telemedicine [facility] [address] [place] [address] Betina Pineda [facility] Individual Therapy; Telehealth 02/24/2025 1:00 PM CDT Telemedicine [facility] [address] [place] [address] Betina Pineda [facility] Individual Therapy; Telehealth 02/24/2025 Travel 02/16/2025 Refill [facility] [address] [place] [address] Rohini Craft NP Refill Request (Fluoxetine) 02/15/2025 3:00 PM CDT Telemedicine [address] [address] Denisse Servin PA Weight (MWL #3); Telehealth 02/15/2025 Travel 02/11/2025 10:40 AM CDT Nurse/Clinic Staff Only [facility] [address] [facility] [address] 02/10/2025 1:00 PM CDT Telemedicine [facility] [address] [facility] [address] Betina Pineda, [facility] Individual Therapy; Telehealth 02/10/2025 Travel 01/31/2025 3:00 PM CDT Ancillary Procedure [facility] [address] [place] [address] 01/31/2025 2:45 PM CDT Ancillary Procedure [facility] [address] [facility] [address] 01/31/2025 1:30 PM CDT Office Visit [facility] [address] [facility] [address] Sandee Kc DO Hip Pain/problem (Left hip pain worsening ); Shoulder Pain/problem (Left shoulder pain ongoing getting worse) 01/31/2025 Travel 01/28/2025 Telephone [facility] [address] [facility] [address] Sandee Kc DO Appointment Request 01/28/2025 Travel from Last 3 Months Immunizations Immunization Administration Dates Next Due AMB Influenza, IIV4 PF (=>6 mos Flulaval,Fluzone Fluarix)(Flu Clinic Only) 07/21/2017 COVID-19 VACCINE SPIKEVAX (M ODERNA 50MCG/0.5ML) 12YO+ PFS 10/08/2023 COVID-19 vaccine (Cipio-Bio NTech 30mcg/0.3mL) 12YO+ KRISTYN-SUCROSE PF, MDV 04/25/2022,11/06/2021 COVID-19 vaccine (Pfizer-Bio NTech 30mcg/0.3mL) PF, MDV 02/20/2021,01/30/2021 Hepatitis B (Adult) 03/15/2015,09/27/2014,2013 Influenza Virus, Unspecified 07/23/2013 Influenza, IIV4 08/12/2024,,06/24/2022,2021,07/04/2020,07/06/2018,06/13/2016,0 06/06/2015,09/27/2014 Influenza,CCIIV4 PRESERV FREE 08/11/2019 Pneumococcal Conj 20-valent (Prevnar 20) 06/24/2022 Pneumococcal Poly,23-Valent (Pneumovax) 12/30/2018,07/07/2013 Td, Preservative Free (age > = 7 Years) 11/14/2017 Tdap 10/29/2007 Zoster (Shingrix-RZV, recombinant) 11/06/2021 Family History Medical History Relation Name Comments Alcoholism Brother 2 alive/1 2 brother s Stroke Brother 2 alive/1 Heart Disease Father CHF, 3V CABG Stroke Maternal Grandmother Good Health Mother Alcoholism Sister 3 sisters 2 sisters Diabetes Sister 3 sisters one sister Osteoporosis Sister 3 sisters Cancer-breast No Family History Relation Name Status Comments Brother 2 alive/1 Father (Age 90) Dementia, CHF, 3V CABG Maternal Grandmother (Age 82) Mother (Age 89) Sister 3 sisters Social History Tobacco Use Types Packs/Day Years Used Date Smoking Tobacco: Former Cigarettes 1 46.2 1 977 - 12/2022 Passive Smoke Exposure: Past Smokeless Tobacco: Never Tobacco Cessation:Counseling Given: Yes Comments:Occ Cig smoker. 05/23/2023 Alcohol Use Standard Drinks/Week Comments Not Currently 0 (1 standard drink = 0.6 oz pur e alcohol) sober date 09/18/24 PHQ-2 Answer Date Recorded PHQ-2 TOTAL SCORE 1 04/20/2025 Social Connections Answer Date Recorded Do you often feel lonely or isolated from those around you? 4 09/07/2024 Financial Resource Strain Answer Date R ecorded Difficulty of Paying Living Expenses 3 07/05/2024 Difficulty of Paying Living Expenses Not on file 07/05/2024 Food Insecurity Answer Date Recorded Do you worry your food will run out before you are able to buy more? 1 09/07/2024 Transportation Needs Answer Date Record ed Does lack of transportation keep you from medica l appointments? 1 09/07/2024 Does lack of transportation keep you from work, meetings or getting things that you need? 1 09/07/2024 Housing Stability Answer Date Recorded What is your housing situation today? 1 09/07/2024 Interpersonal Safety Answer Date Record ed Are you being hit, kicked, p ushed or yelled at (see row info)? No 09/07/2024 Interpersonal Safety Abuse 12 - 18 Not on file 09/07/2024 Interpersonal Safety Ambulatory Vulnerability No t on file 09/07/2024 Utilities Answer Date Recorded Do you have trouble paying f or utilities (for example, heat, electricity, water, phone)? 1 09/07/2024 Comments No Sex and Gender Information Value Date Recorded Sex Assigned at Not on file Legal Sex Female 7:15 AM RESEARCH ASST Gender Identity Not on file Sexual Orientation Not on file Occupation Industry Job Start Date Job End Date unemployed Not on file Not on file Not on file Obstetrics History Para Term AB IAB SAB Ectopic Multiple Livin g Live Births 1 1 1 Date Outcome GA Total Labor Labor/2nd/3rd Weight Sex Type Anes PTL Rita A1 A5 Name Clin Living Last Filed Vital Signs Vital Sign Reading Time Taken Comments Blood Pressure 119/78 03/28/2025 1:30 PM CDT Pulse 67 03/28/2025 1:30 PM CDT Temperature 36.8 C (98.2 F) 03/28/2025 1:30 PM CDT Respiratory Rate 18 09/08/2024 11:55 AM RESEARCH ASST Oxygen Saturation 99% 03/28/2025 1:30 PM CDT Inhaled Oxygen Concentration - - Weight 122.5 kg (270 lb) 04/18/2025 2:00 PM CDT Height 160 cm (5' 2.99) 04/18/2025 2:00 PM CDT Body Mass Index 47.84 04/18/2025 2:00 PM CDT Plan of Treatment Upcoming Encounters Date Type Department Care Team (Late st Contact Info) Description 05/12/2025 10:40 AM CDT Nurse/Clinic Staff Only [facility] [address] [place] [address] 05/12/2025 1:00 PM CDT Telemedicine [facility] [address] [place] [address] Betina Pineda, [facility] [address] [place] [address] 06/09/2025 1:00 PM CDT Telemedicine [facility] [address] [place] [phone] Betina Pineda [facility] [address] [facility] [place] [address] 06/15/2025 1:20 PM CDT Office Visit [facility] [address] [place] [address] Loco Sandhu MD [address] [place] [address] 07/07/2025 11:00 AM CDT Telemedicine [facility] [address] [place] [address] Rohini Craft NP [address] [place] [address] 07/18/2025 3:30 PM CDT Telemedicine [address] [phone] Denisse Servin PA [address] [place] [id number] Health Maintenance Due Date Last Done Comments Zoster (shingles) series for age 50+ (2 of 2) 01/01/2022 11/06/2021 RSV vaccine for adults or (1 - Risk 60-74 years 1-dose series) 2023 COVID-19 vaccine series (2023- season) 2024 10/08/2023, 04/25/2022, 11/06/2021, Additional history exists Influenza Vaccine (#1) 2025 , 06/17/2023, 06/24/2022, Additional history exists Low Dose CT (for lung CA) ag e 50-80 09/07/2025 09/07/2024, 03/13/2023, 06/22/2018, Additional history exists Mammogram for age 45-75 10/29/2025 10/29/19 25, 05/15/2023, 11/06/2021, Additional history exists BMI (ht and wt on same day) for age 18+ 04/18/2026 04/18/2025, 02/15/2025, 12/28/2024, Additional history exists Depression screening for age 12+ 04/20/2026 04/20/2025, 02/15/2025, 02/11/2025, Additional history exists Colonoscopy through age 75 09/03/202609/03, 11/02/2018, 11/02/2018, Additional history exists Tetanus booster 11/14/2027 11/14/2017, 10/29/2007 Pap test for age 21-65 11/18/2027 , 11/18/2024, 06/20/2021, Additional history exists Lipids for age 45-75 11/18/2029 11/18/2024, 05/19/20 17 Hepatitis B series for 19+ Completed 03/15, 09/27/2014, 07/06/2014 HIV for age 15-65 Completed 08/05/2018, 06/09/2014 Hepatitis C screening for ag e 18-79 Completed 05/27/2019, 05/27/2019, 04/16/2017, Additional history exists Pneumococcal series for age 50+ Completed 06/24/2022, 12/30/2018, 07/07/2013 Medical Devices Implanted Type Area Metal Pickling Equipment Operator Device Identifier Shelf Expiration Date Model / Serial / Lot Patella A32x10 Triathlon Tritanium Asymmetric Metal Backed - [id number] Implanted:Qty: 1 on 06/01/2024 by Dhaval Del Angel MD at [facility] Right: Knee [employer] 01/03/2029 5552-L-320 / / [id number] Fem Rt 3 Triathlon Beaded W/Pa - [id number] Implanted:Qty: 1 on 06/01/2024 by Dhaval Del Angel MD at [facility] Right: Knee [employer] 11/05/2028 5517-[id number] / / [id number] Baseplate Tib Univ Sz 3 Triathlon Keeled Ingrowth Pors Tritan - [id number] Implanted:Qty: 1 on 06/01/2024 by Dhaval Del Angel MD at [facility] Right: Knee [employer] 02/10/2029 5536-[id number] / / [id number] Insert Tib Sz 3 9mm Knee X3 Condylar Stabilizing Triathlon - [id number] Implanted:Qty: 1 on 07/20/2024 by Dhaval Del Angel MD at [facility] Right: Knee [employer] 04/14/2029 5531-G-309 -E / / [id number] Explanted Type Area Metal Pickling Equipment Operator Device Identifier Shelf Expiration Date Model / Serial / Lot Insert Tib Sz 3 9mm Knee X3 Condylar Stabilizing Triathlon - [id number] Implanted:Qty: 1 on 06/01/2024 by Dhaval Del Angel MD at [facility] Explanted:Qty: 1 on 07/20/2024 by Dhaval Del Angel MD at [facility] Right: Knee [employer] 08/23/2028 5531-G-309 -[id number] / / [id number] Procedures Procedure Name Priority Date/Time Associated Diagnosis Comments AMB EPIDURAL STEROID INJECTION Routine 04/29/2025 6:31 AM CDT Spinal stenosis of lumbar region with neurogenic claudication Lumbar facet arthropathy Lumbar radiculopathy MR SPINE LUMBAR WO Routine 04/11/2025 11 :58 AM CDT Spinal stenosis of lumbar region with neurogenic claudication Lumbar facet arthropathy Lumbar radiculopathy XR SHOULDER 3 VIEWS LEFT Routine 01/31/2025 3:03 PM CDT Chronic left shoulder pain XR HIP 2 VIEWS WO PELVIS LEFT Routine 01/31/2025 3:03 PM CDT Hip pain, left MANAGER CORPORATE RESPONSIBILITY THIN PREP PAP SCREEN IMAGED Routine 11/18/2024 4:00 PM RESEARCH ASST Cervical cancer screening LIPID PANEL W REFLEX MEASURED LDL Routine 11/18/2024 3:39 PM RESEARCH ASST Lipid screening XR MAMMO CLAIR BILAT SCREEN Routine 10/29/2024 11:23 AM RESEARCH ASST Visit for screening mammogram CT CHEST ABDOMEN PELVIS WO STAT 09/07/2024 4:16 PM RESEARCH ASST COLONOSCOPY 09/03/2023 10:12 AM RESEARCH ASST ACUTE HEPATITIS PANEL Routine 05/27/2019 12:26 PM CDT Chronic fatigue Pruritus ANTI HIV 1/2 Routine 08/05/2018 11:08 AM CDT Leukocytosis, unspecified type from Last 3 Months or Most Recently Relevant to Health Maintenance Results * MR SPINE LUMBAR WO (04/11/2025 11:58 AM CDT) Anatomical Region Laterality Modality Spine, LUMBAR SPINE Magnetic Res onance 04/11/2025 12:4 5 PM CDT Impressions 04/11/2025 12:45 PM CDT 1. No acute fracture or marrow replacing process. 2. At L3-4, moderate thecal sac effacement from spondylosis and dorsal epidural lipomatosis. Progressed since prior MRI. 3. At L4-5, advanced spinal canal stenosis. Slightly progressed since prior MRI. 4. At L5-S1, moderate left neural foraminal stenosis. Moderate thecal sac effacement. Stable. Dictated by Justin Gomes MD @ 04/11/2025 12:45:45 PM (Electronically Signed) Narrative 04/11/2025 12:45 PM CDT For Patients: As a result of the Century Cures Act, medical imaging exams and procedure reports are released immediately into your electronic medical record. You may view this report before your referring provider. If you have questions, please contact your health care provider. INDICATION: Spinal stenosis. Neurogenic claudication. TECHNIQUE : Lumbar spine MRI without contrast. COMPARISON: Lumbar spine MRI from 12/19/2022. FINDINGS : Five lumbar type vertebral bodies, with the last fully formed disc space designated as L5-S1. Normal lumbar lordotic curve. No recent compression fracture or marrow replacing process. Lower cord/conus signal is normal. The conus terminates at a normal location. No intradural lesion. No extraspinal soft tissue abnormalities. Discs/Endplates: Advanced disc height loss, disc desiccation and endplate remodeling at the lower thoracic levels, L3-4 on the right at L4-5. Type 1 Modic changes at the L3-4 level. Findings at individual levels as follows: T10-11: Mild disc osteophyte complex. Superimposed left-sided intraforaminal disc protrusion. Bilateral facet arthrosis. [id number] left neural foraminal stenosis. No right neural foraminal stenosis or spinal canal stenosis. T11-12: Mild disc osteophyte complex. Bilateral facet arthrosis. No spinal canal or neural foraminal stenosis. T12-L1: Trace retrolisthesis. Mild disc osteophyte complex. Bilateral facet arthrosis. Mild left neural foraminal stenosis. No right neuroforaminal stenosis or spinal canal stenosis. L1-2: No spinal canal or neural foraminal stenosis. L2-3: Mild disc bulge. Bilateral facet arthrosis. Mild spinal canal stenosis and mild bilateral foraminal stenosis. L3-4: Moderate disc osteophyte complex, asymmetric to the right. Bilateral facet arthrosis, greater on the right. Dorsal epidural lipomatosis. Moderate thecal sac effacement. Mild bilateral neural foraminal stenosis. L4-5: 7 milliliter scattered anterolisthesis. Moderate disc osteophyte complex. Bilateral facet arthrosis and ligamentum flavum thickening. Advanced spinal canal stenosis. Moderate bilateral neural foraminal stenosis. Susceptibility artifact posterior elements due to interspinous instrumented fusion. L5-S1: Mild disc osteophyte complex, asymmetric to the left. Bilateral facet arthrosis. Mild right and moderate left neural foraminal stenosis. Circumferential epidural lipomatosis. Moderate thecal sac effacement. Imaged SI joints: Bilateral arthrosis. Imaged sacrum: Within normal limits. Procedure Note Justin Gomes MD - 04/11/2025 For Patients: As a result of the Century Cures Act, medical imagingexams and procedure reports are released immediately into your electronicmedical record. You may view this report before your referring provider.If you have questions, please contact your health care provider. INDICATION: Spinal stenosis. Neurogenic claudication. TECHNIQUE : Lumbar spine MRI without contrast. COMPARISON: Lumbar spine MRI from 12/19/2022. FINDINGS : Five lumbar type vertebral bodies, with the last fully formed disc spacedesignated as L5-S1. Normal lumbar lordotic curve. No recent compressionfracture or marrow replacing process. Lower cord/conus signal is normal.The conus terminates at a normal location. No intradural lesion. Noextraspinal soft tissue abnormalities. Discs/Endplates: Advanced disc height loss, disc desiccation and endplateremodeling at the lower thoracic levels, L3-4 on the right at L4-5. Type 1Modic changes at the L3-4 level. Findings at individual levels as follows: T10-11: Mild disc osteophyte complex. Superimposed left-sidedintraforaminal disc protrusion. Bilateral facet arthrosis.Krji-es-qtspsboe left neural foraminal stenosis. No right neural foraminalstenosis or spinal canal stenosis. T11-12: Mild disc osteophyte complex. Bilateral facet arthrosis. No spinalcanal or neural foraminal stenosis. T12-L1: Trace retrolisthesis. Mild disc osteophyte complex. Bilateralfacet arthrosis. Mild left neural foraminal stenosis. No rightneuroforaminal stenosis or spinal canal stenosis. L1-2: No spinal canal or neural foraminal stenosis. L2-3: Mild disc bulge. Bilateral facet arthrosis. Mild spinal canalstenosis and mild bilateral foraminal stenosis. L3-4: Moderate disc osteophyte complex, asymmetric to the right. Bilateralfacet arthrosis, greater on the right. Dorsal epidural lipomatosis.Moderate thecal sac effacement. Mild bilateral neural foraminal stenosis. L4-5: 7 milliliter scattered anterolisthesis. Moderate disc osteophytecomplex. Bilateral facet arthrosis and ligamentum flavum thickening.Advanced spinal canal stenosis. Moderate bilateral neural foraminalstenosis. Susceptibility artifact posterior elements due to interspinousinstrumented fusion. L5-S1: Mild disc osteophyte complex, asymmetric to the left. Bilateralfacet arthrosis. Mild right and moderate left neural foraminal stenosis.Circumferential epidural lipomatosis. Moderate thecal sac effacement. Imaged SI joints: Bilateral arthrosis. Imaged sacrum: Within normal limits. IMPRESSION: 1. No acute fracture or marrow replacing process. 2. At L3-4, moderate thecal sac effacement from spondylosis and dorsalepidural lipomatosis. Progressed since prior MRI. 3. At L4-5, advanced spinal canal stenosis. Slightly progressed sinceprior MRI. 4. At L5-S1, moderate left neural foraminal stenosis. Moderate thecal saceffacement. Stable. Dictated by Justin Gomes MD @ 04/11/2025 12:45:45 PM (Electronically Signed) us Loco Sandhu MD MR Final Resu lt * XR SHOULDER 3 VIEWS LEFT (01/31/2025 3:03 PM CDT) Anatomical Region Laterality Modality SHOULDERS, SHOULDER L Computed R adiography 02/01/2025 1:15 PM CDT Narrative 02/01/2025 1:15 PM CDT For Patients: As a result of the Cures Act, medical imaging exams and procedure reports are released immediately into your electronic medical record. You may view this report before your referring provider. If you have questions, please contact your health care provider. Indication: Chronic left shoulder pain. Technique: Three views of the left shoulder. Comparison: None. Findings: Ossification/calcification within the soft tissues superior to the acromion are likely the sequelae of old trauma. Correlate clinically with location of patient`s pain. There is mild osteoarthritis of the acromioclavicular joint and moderate/severe osteoarthritis of the glenohumeral joint. Bone density is normal. No acute fracture or osteonecrosis is identified. The humeral acromial space is preserved. The left shoulder girdle soft tissues are otherwise unremarkable. Impression: 1. Osteoarthritis. 2. Ossification/calcification within the soft tissues superior to the acromion are likely the sequelae of old trauma. Correlate clinically with location of patient`s pain. Dictated by Sourav Williamson MD @ 02/01/2025 1:15:09 PM (Electronically Signed) Procedure Note Sourav Williamson MD - 02/01/2025 For Patients: As a result of the Cures Act, medical imagingexams and procedure reports are released immediately into your electronicmedical record. You may view this report before your referring provider.If you have questions, please contact your health care provider. Indication: Chronic left shoulder pain. Technique: Three views of the left shoulder. Comparison: None. Findings: Ossification/calcification within the soft tissues superior to theacromion are likely the sequelae of old trauma. Correlate clinically withlocation of patient`s pain. There is mild osteoarthritis of the acromioclavicular joint andmoderate/severe osteoarthritis of the glenohumeral joint. Bone density is normal. No acute fracture or osteonecrosis isidentified. The humeral acromial space is preserved. The left shoulder girdle soft tissues are otherwise unremarkable. Impression: 1. Osteoarthritis. 2. Ossification/calcification within the soft tissues superior to theacromion are likely the sequelae of old trauma. Correlate clinically withlocation of patient`s pain. Dictated by Sourav Williamson MD @ 02/01/2025 1:15:09 PM (Electronically Signed) Sandee Kc DO GENERAL IMAGING Final Resu lt * XR HIP 2 VIEWS LEFT (01/31/2025 3:03 PM CDT) Anatomical Region Laterality Modality HIPS, HIPL, Pelvis Computed Radi ography 02/01/2025 1:13 PM CDT Narrative 02/01/2025 1:13 PM CDT For Patients: As a result of the Cures Act, medical imaging exams and procedure reports are released immediately into your electronic medical record. You may view this report before your referring provider. If you have questions, please contact your health care provider. Indication: Left hip pain. Technique: AP and lateral views of the left hip. Comparison: Pelvis and left hip radiograph 07/27/2018 Findings: The left hip joint space is preserved. Bone density is normal. No fracture or osteonecrosis is identified. The left sacroiliac joint and pubic symphysis are intact. The soft tissues are unremarkable. A new metallic fusion device superimposed over the lower lumbar spine is incompletely visualized on this examination. Impression: No acute bone or joint abnormality. Dictated by Sourav Williamson MD @ 02/01/2025 1:13:03 PM (Electronically Signed) Procedure Note Sourav Williamson MD - 02/01/2025 For Patients: As a result of the Century Cures Act, medical imagingexams and procedure reports are released immediately into your electronicmedical record. You may view this report before your referring provider.If you have questions, please contact your health care provider. Indication: Left hip pain. Technique: AP and lateral views of the left hip. Comparison: Pelvis and left hip radiograph 07/27/2018 Findings: The left hip joint space is preserved. Bone density is normal. No fractureor osteonecrosis is identified. The left sacroiliac joint and pubicsymphysis are intact. The soft tissues are unremarkable. A new metallic fusion device superimposed over the lower lumbar spine isincompletely visualized on this examination. Impression: No acute bone or joint abnormality. Dictated by Sourav Williamson MD @ 02/01/2025 1:13:03 PM (Electronically Signed) us Sandee Kc DO GENERAL IMAGING Final Resu lt * MANAGER CORPORATE RESPONSIBILITY THIN PREP PAP SCREEN IMAGED (11/18/2024 4:00 PM RESEARCH ASST) Case Report Gynecologic Cytology Report Case: [id number] Authorizing Provider: Sandee Kc DO Collected: 11/18/2024 1600 Ordering Location: [facility] Received: 11/18/2024 1600 Clinic First Screen: Wilfrid Casiano Rescreen: Georgiana Lazar Specimen: MANAGER CORPORATE RESPONSIBILITY ThinPrep Vial Screening, Cervical 12/02/2024 9:29 AM RESEARCH ASST [facility] INTERPRETATION/ RESULT NEGATIVE FOR INTRAEPITHELIAL LESION OR MALIGNANCY (NIL) (none) 12/02/2024 9:29 AM [facility] at 0929 RESEARCH ASST SPECIMEN ADEQUACY Satisfactory for evaluation Endocervical cells cannot be evaluated due to severe atrophy 12/02/2024 9:29 AM [facility]ST [facility] HPV REQUEST HPV and PAP 12/02/2024 9:29 AM RESEARCH ASST [facility] Date of LMP post menopausal 12/02/19 25 9:29 AM [facility]ST [facility] Last Pap Date 06/20/21 12/02/2024 9:29 AM [facility] Last Pap Result NIL 9:29 AM RESEARCH ASST [facility] Abnormal Pap or Aspen Bx in last 5 years No 12/02/2024 9:29 AM [facility]ST [facility] Menstrual Status Postmenopausal 12/02/2024 9:29 AM RESEARCH ASST [facility] Aspen Bx Done Today No 12/02/2024 9:29 AM [facility] Additional Information None given 12/02/2024 9:29 AM [facility]ST [facility] Comment: Cytology is screened at [facility] - [address], [place] [address] and [facility] - [address], [place] [address] and [facility] - [address] [place] [address] [facility] - [address], [place] [address] Automated Review Successful 12/02/2024 9:29 AM [facility] Comment:Specimen processed s uccessfully by automated wireless sales manager device, ThinPrep Imaging System, [employer] ANCILLARY TESTING MANAGER CORPORATE RESPONSIBILITY HPV Ordered, Please see separate report 12/02/2024 9:29 AM [facility] Note The pap test is a screening technique, not a diagnostic procedure. It is used primarily to screen for squamous cancers and precursor lesions. Published studies have shown that it is subject to both false negative and false positive results. The pap test should not be used as the sole means to diagnose or exclude pre-malignant and malignant lesions. 12/02/2024 9:29 AM [facility] Other (Cervical) Non-Blood / Unknown 11/18/2024 4:00 PM RESEARCH ASST 11/18/2024 4:00 PM RESEARCH ASST Sandee Kc DO PATHOLOGY/CYTOLOGY Final R esult [facility] [address] [place] [id number], * (ABNORMAL) LIPID PANEL W REFLEX MEASURED LDL (11/18/2024 3:39 PM RESEARCH ASST) CHOLESTEROL, TOTAL 191 <200 mg/dL [facility] HDL CHOLESTEROL 65 > OR = 50 mg/dL [facility] TRIGLYCERIDES 82 <150 mg/dL [facility] LDL-CHOLESTEROL 109(H) mg/dL (calc) [facility] Comment: Reference range: <100 Desirable range <100 mg/dL for primary prevention; <70 mg/dL for patients with CHD or diabetic patients with > or = 2 CHD risk factors. LDL-C is now calculated using the Cale calculation, which is a validated novel method providing better accuracy than the Friedewald equation in the estimation of LDL-C. Hai WATKINS et al. ARLET. 2013;310(19): 9538-0560 (http://education.[employer]faq/RRN748) CHOL/HDLC RATIO 2.9 <5.0 (calc) [facility] NON HDL CHOLESTEROL 126 <130 mg/dL (calc) [facility] Comment: For patients with diabetes plus 1 major ASCVD risk factor, treating to a non-HDL-C goal of <100 mg/dL (LDL-C of <70 mg/dL) is considered a therapeutic option. Blood BLOOD SPECIMEN / Unknown 11/18/2024 3:39 PM RESEARCH ASST 11/18/2024 3:39 PM RESEARCH ASST us Sandee Kc DO CHEMISTRY Final Resu lt [facility] [place] [address] [place] [address], [place] [phone] [facility] [address] [place] [address] * XR MAMMO CLAIR BILAT SCREEN (10/29/2024 11:23 AM RESEARCH ASST) Anatomical Region Laterality Modality BREASTS, Breast Left, Breast Right Bilateral Mammography Impressions 11/01/2024 1:22 PM RESEARCH ASST There is no radiographic evidence for malignancy. Recommend annual mammograms. MAMMOGRAM ASSESSMENT: ACR 1 Negative PATIENTS: You will also receive a letter with your examination results in an easy to read format. If you have questions about your results, please contact your referring provider. Narrative 11/01/2024 1:22 PM RESEARCH ASST For Patients: As a result of the Cures Act, medical imaging exams and procedure reports are released immediately into your electronic medical record. You may view this report before your referring provider. If you have questions, please contact your health care provider. XR MAMMO CLAIR BILAT SCREEN [[id number]] CLINICAL HISTORY: This is an asymptomatic 59 y.o. patient. INDICATION FOR EXAM: Mammogram Screening. TECHNIQUE: CC & MLO views were obtained. This study was evaluated with the assistance of Computer-Aided Detection. Breast Tomosynthesis was used in interpretation. COMPARISON FILM: Yes 05/15/23 [facility] 11/06/21 [employer] FINDINGS: There are scattered areas of fibroglandular density. There are no dominant masses, suspicious micro calcifications or areas of architectural distortion. Sandee Kc DO MAMMO Final Resu lt * CT CHEST ABDOMEN PELVIS WO (09/07/2024 4:16 PM RESEARCH ASST) Anatomical Region Laterality Modality Abdomen, Pelvis, AORTA, LIVER, SPLEEN, CHEST Computed Tomography 09/07/2024 4:42 PM RESEARCH ASST Impressions 09/07/2024 4:42 PM RESEARCH ASST No findings to explain sepsis. Incidental findings as above. Please note that all CT scans at this facility use dose modulation, iterative reconstruction, and/or weight-based dosing when appropriate to reduce radiation dose to as low as reasonably achievable. Dictated by Gunner Espitia MD @ 09/07/2024 4:42:45 PM (Electronically Signed) Narrative 09/07/2024 4:42 PM RESEARCH ASST For Patients: As a result of the Cures Act, medical imaging exams and procedure reports are released immediately into your electronic medical record. You may view this report before your referring provider. If you have questions, please contact your health care provider. INDICATION: Sepsis. No additional clinical information is provided. COMPARISON: None available. TECHNIQUE: CT of the chest, abdomen and pelvis without intravenous contrast. Please note that all CT scans at this facility use dose modulation, iterative reconstruction, and/or weight-based dosing when appropriate to reduce radiation dose to as low as reasonably achievable. FINDINGS: The study is performed without intravenous contrast. This limits the sensitivity of the exam for the detection bowel pathology, focal lesions of the abdominopelvic viscera and vascular pathology including significant vascular stenosis, occlusion and dissection. THORAX Lungs: No significant incidental findings. Pleura: No effusion. No pneumothorax. Mediastinum: Normal caliber of the thoracic aorta and pulmonary outflow tract. Moderate right coronary artery atherosclerotic calcification. Trachea and esophagus are normal in appearance. No mediastinal lymphadenopathy. Visualized Lower Neck: No significant incidental findings. ABDOMEN Liver: Normal contour and attenuation.Diffuse steatosis. No significant focal lesion. No intrahepatic biliary ductal dilatation. Gallbladder: Cholecystectomy. Normal common duct caliber. Pancreas: Normal contour and attenuation. No peripancreatic inflammatory changes. No significant focal lesion. Normal main duct caliber. Spleen: Not enlarged. No significant focal lesion. Adrenal Glands: Symmetrical adrenal glands. No significant focal lesion. Kidneys: Normal bilateral renal attenuation. No significant focal lesion. No nephrolith. No dilatation of the intrarenal collecting systems. No ureteral stone. Nondilated ureters. Gastrointestinal tract: Normal caliber, attenuation and wall thickness of the gastrointestinal tract. No inflammatory changes. Normal small bowel mesentery. Normal appendix. Incidental lipoma of the distal ascending colon. Vascular: Chronic aortoiliac atherosclerotic mural calcification. Normal outer wall to outer wall abdominal aortic caliber. Patency and luminal caliber of the abdominopelvic arterial and venous vasculature cannot be assessed on this noncontrast study. Peritoneal Cavity/Retroperitoneum: No ascites. No adenopathy. PELVIS No bladder lesion is identified. No significant incidental findings related to the uterus or uterine adnexa. No ascites. No adenopathy. SKELETON AND BODY WALL Multilevel thoracolumbar spondylosis. Grade 1 degenerative anterolisthesis of L4 on L5. Well-maintained vertebral body heights. Interspinous device at L4-L5. 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 Procedure Note Gunner Espitia MD - 12/03/2024 For Patients: As a result of the Century Cures Act, medical imagingexams and procedure reports are released immediately into your electronicmedical record. You may view this report before your referring provider.If you have questions, please contact your health care provider. INDICATION: Sepsis. No additional clinical information is provided. COMPARISON: None available. TECHNIQUE: CT of the chest, abdomen and pelvis without intravenous contrast. Pleasenote that all CT scans at this facility use dose modulation, iterativereconstruction, and/or weight-based dosing when appropriate to reduceradiation dose to as low as reasonably achievable. FINDINGS: The study is performed without intravenous contrast. This limits thesensitivity of the exam for the detection bowel pathology, focal lesionsof the abdominopelvic viscera and vascular pathology including significantvascular stenosis, occlusion and dissection. THORAX Lungs: No significant incidental findings. Pleura: No effusion. No pneumothorax. Mediastinum: Normal caliber of the thoracic aorta and pulmonary outflowtract. Moderate right coronary artery atherosclerotic calcification.Trachea and esophagus are normal in appearance. No mediastinallymphadenopathy. Visualized Lower Neck: No significant incidental findings. ABDOMEN Liver: Normal contour and attenuation.Diffuse steatosis. No significant focallesion. No intrahepatic biliary ductal dilatation. Gallbladder: Cholecystectomy. Normal common duct caliber. Pancreas: Normal contour and attenuation. No peripancreatic inflammatory changes. Nosignificant focal lesion. Normal main duct caliber. Spleen: Not enlarged. No significant focal lesion. Adrenal Glands: Symmetrical adrenal glands. No significant focal lesion. Kidneys: Normal bilateral renal attenuation. No significant focal lesion. Nonephrolith. No dilatation of the intrarenal collecting systems. Noureteral stone. Nondilated ureters. Gastrointestinal tract: Normal caliber, attenuation and wall thickness of the gastrointestinaltract. No inflammatory changes. Normal small bowel mesentery. Normalappendix. Incidental lipoma of the distal ascending colon. Vascular: Chronic aortoiliac atherosclerotic mural calcification. Normal outer wallto outer wall abdominal aortic caliber. Patency and luminal caliber of theabdominopelvic arterial and venous vasculature cannot be assessed on thisnoncontrast study. Peritoneal Cavity/Retroperitoneum: No ascites. No adenopathy. PELVIS No bladder lesion is identified. No significant incidental findings related to the uterus or uterineadnexa. No ascites. No adenopathy. SKELETON AND BODY WALL Multilevel thoracolumbar spondylosis. Grade 1 degenerative anterolisthesisof L4 on L5. Well-maintained vertebral body heights. Interspinous deviceat L4-L5. 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 IMPRESSION: No findings to explain sepsis. Incidental findings as above. Please note that all CT scans at this facility use dose modulation,iterative reconstruction, and/or weight-based dosing when appropriate toreduce radiation dose to as low as reasonably achievable. Dictated by Gunner Espitia MD @ 09/07/2024 4:42:45 PM (Electronically Signed) us Brie Luciano SILVA CT Final Result * COLONOSCOPY (09/03/2023 10:12 AM RESEARCH ASST) 09/03/2023 10:1 2 AM RESEARCH ASST Narrative Transcriptions Jimenez Carmona MD - 09/03/2023 11:34 AM CST Patient Name: Angelita Nicolas Procedure Date: 09/03/2023 Gender: Female Date of : 1965 Admit Type: Ambulatory Procedure: Colonoscopy Proceduralist: Jimenez Carmona MD [facility] Referring MD: Sandee Kc Indications/Pre-Op Diagnosis: High risk colon cancer surveillance:Personal history of colonic polyps Medications: Propofol per Anesthesia Procedure Description: The patient had risks, benefits and alternatives explained to andgave informed consent. The patient had a stable cardiopulmonary status and judged an adequate candidate for conscious sedation. The endoscope [id number] was passed through the anus and advanced to the cecum, identified by appendiceal orifice andileocecal valve. The colonoscopy was performed without difficulty. The patient tolerated the procedure well. The quality of the bowel preparationwas good. The ileocecal valve, appendiceal orifice, and rectum were photographed. Complications: No immediate complications. Estimated Blood Loss & Specimen: Estimated blood loss: none. Findings: Hemorrhoids were found on perianal exam. An 8 mm polyp was found in the ascending colon. The polyp wassessile. The polyp was removed with a hot snare. Resection and retrieval were complete. Verification of patient identification for the specimen was done. Estimated blood loss was minimal. There was a medium-sized lipoma, 20 mm in diameter, in the ascending colon. Two sessile polyps were found in the descending colon. The polypswere 2 to 5 mm in size. These polyps were removed with a hot snare.Resection and retrieval were complete. Verification of patient identificationfor the specimen was done. Estimated blood loss was minimal. Two sessile polyps were found in the recto-sigmoid colon. The polyps were 2 to 4 mm in size. These polyps were removed with a hot snare. Resection and retrieval were complete. Verification of patient identification for the specimen was done. Estimated blood loss was minimal. Four sessile polyps were found in the rectum. The polyps were 3 to 6mm in size. These polyps were removed with a hot snare. Resection and retrieval were complete. Verification of patient identification forthe specimen was done. Estimated blood loss was minimal. The exam was otherwise without abnormality on direct and retroflexion views. Impressions/Post-Op Diagnosis: - Hemorrhoids found on perianal exam. - One 8 mm polyp in the ascending colon, removed with a hot snare. Resected and retrieved. - Medium-sized lipoma in the ascending colon. - Two 2 to 5 mm polyps in the descending colon, removed with a hot snare. Resected and retrieved. - Two 2 to 4 mm polyps at the recto-sigmoid colon, removed with a hot snare. Resected and retrieved. - Four 3 to 6 mm polyps in the rectum, removed with a hot snare. Resected and retrieved. - The examination was otherwise normal on direct and retroflexionviews. Recommendation: - Discharge patient to home. - Resume previous diet. - Continue present medications. - Await pathology results. - Repeat colonoscopy in 3 - 5 years for surveillance. - Return to referring physician. Jimenez Carmona MD 09/03/2023 11:34:10 AM Note Initiated On: 09/03/2023 10:12 AM Jimenez Carmona MD PROCEDURE ORD Final Resu lt * (ABNORMAL) ACUTE HEPATITIS PANEL (05/27/2019 12:26 PM CDT) HEPATITIS C ANTIBODY Reactive, Preliminary Positive(A) Non-Reactive 05/28/2019 11:08 AM CDT [facility] Comment:Presumptive evidence of antibodies to HCV. Reflexed to HCV RNA Quant (See separate report). IGM ANTI HAV Non-Reactive Non-Reactive 05/28/20 19 11:08 AM CDT [facility] HBSAG Nonreactive Nonreactive 05/28/2019 11:08 AM CDT [facility] IGM ANTI HBC Non-Reactive Non-Reactive 05/28/20 19 11:08 AM CDT [facility] Blood BLOOD SPECIMEN / Unknown Venipuncture / Unknown 05/27/2019 12:26 PM CDT 05/27/2019 12:26 PM CDT Narrative [facility] - 05/28/2019 11:08 AM CDT Anti-HBc IgM not detected. Does not exclude the possibility of exposure to or infection with HBV. Sandee Kc DO SEND OUTS [facility] [address] [place] [address], * ANTI HIV 1/2 (08/05/2018 11:08 AM CDT) HIV-1/HIV-2 ANTIBODY Non-Reacti ve Non-Reacti ve 08/05/2018 5:27 PM CDT [facility] Comment:HIV-1 p24 and HIV-1/ HIV-2 Ab not detected. Blood BLOOD SPECIMEN / Unknown Venipuncture / Unknown 08/05/2018 11:08 AM CDT 08/05/2018 11:08 AM CDT us Sandee Mejiassigrid DO SEND OUTS Final Resu lt [facility] [address] [place] [address], from Last 3 Months or Most Recently Relevant to Health Maintenance Additional Health Concerns Infection Onset Date Last Indicated MRSA Clearance Comment:Nares surveillance cultures needed to clear patient if <12 months since positive culture. If >12 months since positive culture, precautions can be discontinued if patient has no MRSA risk factors. #1 06/08/2020 +MRSA 12/27/2019 buttock, 03/10/2020 left knee exclusions for contact precaution discontinuation (if > 12 months since positive culture): resides in acute/assisted care, receiving hemodialysis, has chronic open wounds/skin damage, has long-term percutaneous indwelling medical devices Exclusions for nares collection (if <12 months since positive culture) include all of the previous exclusions plus patients on antibiotics 7 days prior to collection 07/11/2020 07/11/2020 Insurance [facility] ATTN: [place] [address] [place] BL[place] PB ONLY MEDICARE PART B HB ONLY [place] BL[place] HB ONLY MEDICARE PART A HB ONLY MEDICARE PROVIDER BASED MR GIO MARTINEZ Advance Directives * Full Code (Latest Code Status on File) Date Activated Date Inactivated Comments 09/07/2024 6:54 PM 09/08/2024 3:38 PM Question Answer Comments Code Status Discussion: Reviewed Preferences * Full Code Date Activated Date Inactivated Comments 07/20/2024 1:05 PM 07/29/2024 2:15 PM Question Answer Comments Code Status Discussion: Not Discussed * Full Code Date Activated Date Inactivated Comments 07/05/2024 2:15 PM 07/07/2024 1:37 PM Question Answer Comments Code Status Discussion: Reviewed Preferences * Full Code Date Activated Date Inactivated Comments 06/01/2024 2:35 PM 06/04/2024 7:38 PM Question Answer Comments Code Status Discussion: Not Discussed * Full Code Date Activated Date Inactivated Comments 06/01/2024 10:06 AM 06/01/2024 2:35 PM Question Answer Comments Code Status Discussion: Not Discussed Care Teams Torch Brazer Relationship Specialty Start Date End Date Sandee [place] [address] PCP - General Family Practice 09/27/14 Arley Doan MD [address] [place] [address] Rheumatology Rheumatology 06/09/14 Luana Rohinirichelle Goldstein, COMPLIANCE EXAMINER [address] [place] [address] Psychiatry Nurse Practitioner 12/13/20 Sourav Singleton MD [address] [facility] [address] [place] [address] Consulting Physician Surgery - General 08/05/23 Apoorva Kelly, RN [address] [facility] [address] [place] [address] It Trainee Registered Nurse 08/05/[address] [place] [address] Trauma Registrar 08/15/23 Betina Pineda, [facility] [address] [place] [address] Head Nurse 11/25/23 Linda Hilliard MD [address] [facility] [address] [place] [address] Internal Medicine 06/01/24 Denisse Servin PA [address] [place] [address] Physician Mri Manager 03/18/25
--- OUTSIDE RECORDS SUMMARY | 2025-04-29 11:11 | XMS_ITS | Encounter Summary ---
Author Organization [facility] Address [address] [place] [address] Care Team Providers Care Windsurfing Instructor Name Role Phone José Miguel Mckenzie MD Primary Care Provider [phone] Encounter Details Date Type Department Care Team (Latest Contact Info) Description 11/04/1998 Orders Only Maxwell Melissa Social History Tobacco Use Types Packs/Day Years [...] documented as of this encounter Care Teams Windsurfing Instructor Relationship Specialty Start Date End Date José Miguel Mckenzie MD [address] [place] [address] PCP - General 07/24/1996 documented as of this encounter
--- OUTSIDE RECORDS SUMMARY | 2025-04-29 11:11 | XMS_ITS | Encounter Summary ---
Author Organization [facility] Address [address] [place] [address] Care Team Providers Care Surgical Services Director Name Role Phone José Miguel Mckenzie MD Primary Care Provider [phone] Encounter Details Date Type Department Care Team (Latest Contact Info) Description 08/11/1998 Orders Only Minh Valverde [place], [place] Social History Tobacco Use Types Packs/Day Years [...] documented as of this encounter Care Teams Surgical Services Director Relationship Specialty Start Date End Date José Miguel Mckenzie MD [address] [place] [address] PCP - General 07/24/1996 documented as of this encounter
--- OUTSIDE RECORDS SUMMARY | 2025-04-29 11:11 | XMS_ITS | Encounter Summary ---
Author Organization [facility] Address [address] [place] [address] Care Team Providers Care Medical Assembly Name Role Phone José Miguel Mckenzie MD Primary Care Provider [phone] Encounter Details Date Type Department Care Team (Latest Contact Info) Description 02/20/2000 Orders Only José Miguel Mckenzie MD [address] [place] [address] Social History Tobacco Use Types Packs/Day Years [...] documented as of this encounter Care Teams Medical Assembly Relationship Specialty Start Date End Date José Miguel Mckenzie MD [address] [place] [address] PCP - General 07/24/1996 documented as of this encounter
[2025-04-29 11:32] VITALS: BP 128/81; PULSE 74; RESP 18; TEMP 36.7; O2SAT 92; BMI 46.1
--- NOTE | 2025-04-29 11:48 | ED.CHESTPAIN ---
HPI - Chest Pain General Chief Complaint: Chest Pain Stated Complaint: Chest pain Time Seen by Provider: 04/29/25 11:36 History of Present Illness HPI narrative: Patient is a 59-year-old woman who comes in today after having lumbar injection. Patient has a known history of low back issues. Wash use waiting for her injection today. She was leaning on her right arm and her arm fell asleep. After time the tingling went away but she mentioned to the nurse in injection clinic that she had the symptoms. She also had some chest pain last week which was minimal and only for few seconds. She has had no nausea vomiting fevers chills chest pain diaphoresis. No other significant symptoms. She does vape as she is successfully weaned off of tobacco Related Data Home Medications ?Medication ?Instructions ?Recorded ?Confirmed amlodipine 5 mg tablet 5 mg PO DAILY 04/29/25 04/29/25 fluoxetine 40 mg capsule PO 04/29/25 ibuprofen 800 mg tablet PO 04/29/25 lisinopril 40 mg tablet 40 mg PO DAILY 04/29/25 04/29/25 omeprazole 20 mg capsule,delayed 20 mg PO BID 04/29/25 04/29/25 release pregabalin 150 mg capsule 150 mg PO 3XD 04/29/25 04/29/25 topiramate 25 mg tablet 25 mg PO BID 04/29/25 04/29/25 Review of Systems Status of ROS Reports: 10 or more systems reviewed and unremarkable except as noted in History and below Exam Narrative Exam Narrative: EXAM GENERAL: Patient appears comfortable and well. EYES: No scleral icterus. ENT: Tympanic membranes and oropharynx normal. THYROID: no thyroid nodules or thyromegaly. LYMPH: No supraclavicular or cervical lymphadenopathy. SKIN: Visible skin seen during exam normal or with benign process only. EXT: No dependent lower extremity pedal edema. HEART: Regular rate and rhythm with no murmurs, rubs, or gallops. LUNGS: Clear to auscultation bilaterally with no crackles or wheezes. ABD: Soft, non tender, non distended. PSYCH: Good eye contact, speech is not pressured. Const Vital Signs, click to edit/add: Vital Signs - 24 hr 04/29/25 11:32 Temperature 98.1 F Pulse Rate [Pulse Oximeter] 74 Respiratory Rate 18 Blood Pressure [Right Upper Arm] 128/81 Pulse Oximetry 92 Oxygen Delivery Method Room Air Course Course ED Course: Patient seen examined. EKG shows normal sinus rhythm without acute T-wave changes. Vital Signs Vital signs: Initial Vital Signs Temperature 98.1 F 04/29/25 11:32 Temperature Source Temporal Artery Scan 04/29/25 11:32 Pulse Rate 74 04/29/25 11:32 Respiratory Rate 18 04/29/25 11:32 Blood Pressure 128/81 04/29/25 11:32 Blood Pressure Mean 96 04/29/25 11:32 Pulse Oximetry 92 04/29/25 11:32 Oxygen Delivery Method Room Air 04/29/25 11:32 Vital Signs Temperature 98.1 F 04/29/25 11:32 Pulse Rate 74 04/29/25 11:32 Respiratory Rate 18 04/29/25 11:32 Blood Pressure 128/81 04/29/25 11:32 Pulse Oximetry 92 04/29/25 11:32 Oxygen Delivery Method Room Air 04/29/25 11:32 Temperature 98.1 F 04/29/25 11:32 Pulse Rate 74 04/29/25 11:32 Respiratory Rate 18 04/29/25 11:32 Blood Pressure 128/81 04/29/25 11:32 Pulse Oximetry 92 04/29/25 11:32 Oxygen Delivery Method Room Air 04/29/25 11:32 MDM - Chest Pain MDM Narrative Medical decision making narrative: Patient presents with arm tingling which was positional over an injection clinic has resolved. She has also had chest pain last week EKG shows normal sinus rhythm. She is asymptomatic like to go home. Her ride would not take her home unless she came to the ER for assessment 1st. I do not believe it is in her best interest to proceed with any further workup at this time. Reassurance offered she can advance her diet activity follow-up with her primary physician as needed. Discharge Plan Discharge Clinical Impression: Chest pain Patient Disposition: Home, Self-Care Condition: Stable Instructions: Chest Pain (ED) Additional Instructions: Continue current home medications. Follow-up with your doctor as needed. Activity Level: No Restrictions Prescriptions: No Action fluoxetine 40 mg capsule PO ibuprofen 800 mg tablet PO topiramate 25 mg tablet 25 mg PO BID amlodipine 5 mg tablet 5 mg PO DAILY omeprazole 20 mg capsule,delayed release(DR/EC) 20 mg PO BID lisinopril 40 mg tablet 40 mg PO DAILY pregabalin 150 mg capsule 150 mg PO 3XD Follow Up/Referrals: Sandee Kc DO [Primary Care Provider, Family Practice] Stand Alone Forms: Glo [employer] Info Instructions
--- NOTE | 2025-04-29 12:18 | ED.NURSE ---
Pt symptoms had resolved and then feeling returned to R arm at time of discharge. Pt able to move entire arm and hand; Dr. Bailon was brought back to room and confirmed discharge plan. Pt able to ambulate well independently using wheeled walker; has ride home.
== END 2025-04-29 12:18 | disposition home or self-care (01) ==
LOC: ED 12:01
PROVIDERS: Emergency Provider Internal Medicine; PCP Family Medicine
DX: R07.9 Chest pain, unspecified (principal); M54.16 Radiculopathy, lumbar region
CPT/HCPCS: 62323; 93005; 99283; 99284; J0702; Q9966

== ENCOUNTER 2025-07-19 09:20 | Outpatient (CLI) | payer MEDICARE, BC, SELFPAY | END 2025-07-19 09:21 | disposition home or self-care (01) | LOC: INJ CL 09:23 | PROVIDERS: PCP Family Medicine; Visit Provider Family Medicine | DX: M54.16 Radiculopathy, lumbar region (principal); M51.369 Other intervertebral disc degeneration, lumbar region without mention of lumbar back pain or lower extremity pain | CPT/HCPCS: 62323; J0702; Q9966 ==

== ENCOUNTER 2025-08-30 15:08 | Outpatient (CLI) | payer MEDICARE, BC, SELFPAY | END 2025-08-30 15:09 | disposition home or self-care (01) | LOC: INJ CL 15:08 | PROVIDERS: PCP Family Medicine; Visit Provider Family Medicine | DX: M17.12 Unilateral primary osteoarthritis, left knee (principal); M25.562 Pain in left knee | CPT/HCPCS: 64454 ==

== ENCOUNTER 2025-09-27 09:19 | Outpatient (CLI) | payer MEDICARE, BC, SELFPAY | END 2025-09-27 09:20 | disposition home or self-care (01) | LOC: INJ CL 09:19 | PROVIDERS: PCP Family Medicine; Visit Provider Family Medicine | DX: M17.12 Unilateral primary osteoarthritis, left knee (principal); M25.562 Pain in left knee; G89.29 Other chronic pain | CPT/HCPCS: 64624; J2250; J3010 ==